=== PATIENT | male | born 1955 | race Caucasian/White ===

== ENCOUNTER → 2017-06-06 09:26 | Outpatient (CLI) | payer OTHER, MEDICARE, SELFPAY ==
--- NOTE | 2017-06-06 09:29 | CT_ITS ---
CT abdomen pelvis w con CLINICAL INDICATION: Abdominal pain, follow-up pancreatitis ITS.REASON: Abdominal pain, history of pancreatitis ORDERING PHYSICIAN: Jacky Lau MD PATIENT AGE: 61 years COMPARISON: 10/09/2016 TECHNIQUE: Axial images obtained following contrast administration. 30 seconds, 60 seconds, and 5 minute delayed images are obtained with sagittal and coronal reformats. All CT scans at the facility use one or more dose reduction, viz: automated exposure control; ma/kV adjustment per patient size (including targeted exams where dose is matched to indication; i.e. head); or iterative reconstruction technique. PROCEDURE: Oral Contrast: Redicat IV Contrast: 75 mL of Isovue-370. FINDINGS: No acute finding in the lung bases. Mild fatty liver infiltration. No focal liver lesion evident. Prior cholecystectomy without ductal dilatation the spleen, adrenal glands, and kidneys have an unremarkable appearance. Scattered punctate calcifications are present within the pancreas consistent with chronic pancreatitis. The previously noted acute pancreatitis has resolved. No pancreatic mass or pseudocyst.. No peripancreatic fluid collection. There is a small oval density in the right paracolic gutter measuring 1 x 1.2 cm with some ringlike enhancement. This may be due to small area of fat necrosis. No intestinal obstruction or free air is evident. Unremarkable appendix. There is some faint increased density of the central mesenteric fat on the delayed images which is nonspecific. Diverticulosis involving the descending and sigmoid colon. No evidence of diverticulitis. No pelvic mass or fluid collection or focal inflammatory change of the pelvis. No acute bony findings. IMPRESSION: 1. Chronic pancreatitis. Previously noted acute pancreatitis has resolved. 2. Diverticulosis without diverticulitis. 3. Probable small area of fat necrosis in the right paracolic gutter. This may be confirmed with follow-up
== END ==
PROVIDERS: Family Provider Nurse Practitioner; PCP Family Medicine; Visit Provider Surgery
DX: Z87.19 Personal history of other diseases of the digestive system (principal); R10.9 Unspecified abdominal pain
CPT/HCPCS: 74177; Q9967

== ENCOUNTER → 2017-06-14 10:45 | Outpatient (CLI) | payer OTHER, MEDICARE, SELFPAY ==
--- NOTE | 2017-06-14 10:47 | FL_ITS ---
FL upper GI small bowel HISTORY: ITS.REASON: abd pain, bloating ORDERING PHYSICIAN: Jacky Lau MD PATIENT AGE: 61 years FINDINGS: Credit Administrator exam shows a 1 cm stone along the lower pole of the left kidney. There are scattered hyperdensities in the abdomen consistent with contrast filled diverticula. Posttraumatic changes are present involving the left hip with bony hypertrophy. Surgical clips right upper quadrant. There is a small sliding hiatal hernia. No ulcer or mass evident. The stomach and duodenum have an unremarkable appearance. The small bowel has an unremarkable appearance. No mucosal abnormalities, obstructing lesions, or mass is evident. Spot views of the terminal ileum are unremarkable. IMPRESSION: 1. Small sliding hiatal hernia. 2. Otherwise negative upper GI with small bowel follow-through. Fluoroscopy time: 2 minutes 45 seconds
== END ==
PROVIDERS: Family Provider Nurse Practitioner; PCP Family Medicine; Visit Provider Surgery
DX: R10.9 Unspecified abdominal pain (principal); R14.0 Abdominal distension (gaseous); R19.8 Other specified symptoms and signs involving the digestive system and abdomen
CPT/HCPCS: 74245

== ENCOUNTER → 2017-06-19 09:43 | Outpatient (CLI) | payer OTHER, MEDICARE, SELFPAY ==
--- NOTE | 2017-06-19 09:46 | NM_ITS ---
NM gastric emptying study CLINICAL INDICATION: ITS.REASON: epigastric discomfort,abd pain ORDERING PHYSICIAN: Jacky Lau MD PATIENT AGE: 61 years DOSE: 0.58 mCi technetium sulfa colloid with radiolabeled meal FINDINGS: Time/activity curve is generated following ingestion of the radiolabeled meal. One half emptying time is calculated to be 61 minutes which is normal. One half of the gastric contents had emptied at 60 minutes. Submitted images show no evidence of reflux. IMPRESSION: Normal gastric emptying time
== END ==
PROVIDERS: Family Provider Nurse Practitioner; PCP Family Medicine; Visit Provider Surgery
DX: R10.13 Epigastric pain (principal); R10.9 Unspecified abdominal pain; K86.1 Other chronic pancreatitis; R14.0 Abdominal distension (gaseous); R19.8 Other specified symptoms and signs involving the digestive system and abdomen
CPT/HCPCS: 78264; A9541

== ENCOUNTER → 2017-07-01 08:57 | Outpatient (POV) | payer OTHER, MEDICARE, SELFPAY ==
[2017-07-01 10:32] LABS: Basophils # 0.1 K/mm3 (0-0.2); Basophils % 0.7 % (0.1-2.0); Eosinophils # 0.2 K/mm3 (0.0-0.4); Eosinophils % 3.7 % (0.1-12.0); Hematocrit 50.3 % (42.0-52.0); Hemoglobin 16.5 g/dL (14.1-18.0); Lymphocytes # 1.6 K/mm3 (0.7-4.5); Lymphocytes % 23.9 K/mm3 (10-50); Mean Corpuscular HGB Conc 32.8 g/dL (31.8-35.4); Mean Corpuscular Hemoglobin 29.9 pg (27.0-31.2); Mean Corpuscular Volume 91.4 fl (80-94); Mean Platelet Volume 10.4 fl (7.4-10.4); Monocytes # 0.4 K/mm3 (0.1-1.0); Monocytes % 5.4 % (1.7-9.3); Neutrophils # 4.4 K/mm3 (1.8-7.8); Neutrophils % 66.2 % (37.0-80.0); Platelet Count 153 K/mm3 (142-424); Red Cell Distribution Width 13.4 % (11.5-17.5); White Blood Count 6.6 K/mm3 (4.8-10.8)
[2017-07-01 11:46] LABS: Alanine Aminotransferase 28 U/L (12-78); Albumin Level 3.8 gm/dL (3.4-5.0); Albumin/Globulin Ratio 1.2 (1.1-1.8); Alkaline Phosphatase 51 U/L (46-116); Amylase 110 U/L (25-125); Anion Gap 12.4 mEq/L (5-15); Aspartate Amino Transferase 19 U/L (15-37); Bilirubin,Total 0.3 mg/dL (0.2-1.0); Blood Urea Nitrogen 13 mg/dL (7-18); Calcium 9.5 mg/dL (8.5-10.1); Carbon Dioxide 27 mmol/L (21.0-32.0); Chloride 105 mmol/L (98-107); Creatinine,Serum 0.97 mg/dL (0.70-1.30); Estimated Glomerular Filt Rate 79 ml/min (>60); GFR (African American) 96 ML/MIN (>60); Globulin 3.2 gm/dl (1.3-3.2); Glucose 155 mg/dL (74-106); Lipase 524 u/L (73-393); Potassium 4.4 mmoL/L (3.5-5.1); Sodium 140 mmol/L (136-145)
== END ==
PROVIDERS: Visit Provider Nurse Practitioner Acute Care
DX: K85.90 Acute pancreatitis without necrosis or infection, unspecified (principal)
CPT/HCPCS: 36415; 80053; 82150; 83690; 85025

== ENCOUNTER → 2017-11-11 08:55 | Outpatient (POV) | payer OTHER, MEDICARE, SELFPAY | PROVIDERS: Family Provider Nurse Practitioner; PCP Family Medicine; Visit Provider Nurse Practitioner Acute Care | DX: Z00.00 Encounter for general adult medical examination without abnormal findings (principal) ==

== ENCOUNTER → 2019-08-24 09:01 | Outpatient (CLI) | payer MEDICARE, SELFPAY ==
[2019-08-24 09:20] LABS: Basophils # 0.1 K/mm3 (0-0.2); Basophils % 0.7 % (0.1-2.0); Eosinophils # 0.2 K/mm3 (0.0-0.4); Eosinophils % 3.4 % (0.1-12.0); Hematocrit 49.7 % (42.0-52.0); Hemoglobin 16.4 g/dL (14.1-18.0); Lymphocytes % 28.7 % (10-50); Mean Corpuscular Hemoglobin 29.6 pg (27.0-31.2); Mean Corpuscular Volume 89.7 fl (80-94); Mean Platelet Volume 9.9 fl (7.4-10.4); Monocytes # 0.3 K/mm3 (0.1-1.0); Monocytes % 4.2 % (1.7-9.3); Neutrophils # 4.3 K/mm3 (1.8-7.8); Neutrophils % 62.9 % (37.0-80.0); Platelet Count 135 K/mm3 (142-424); Red Blood Count 5.54 M/mm3 (4.60-6.20); Red Cell Distribution Width 14.9 % (11.5-17.5); White Blood Count 6.9 K/mm3 (4.8-10.8)
[2019-08-24 10:03] LABS: Chloride 104 mmol/L (98-107); Potassium 4.8 mmoL/L (3.5-5.1); Sodium 142 mmol/L (136-145)
[2019-08-24 10:05] LABS: Amylase 61 U/L (30-110)
[2019-08-24 10:06] LABS: Alanine Aminotransferase 21 U/L (12-78); Albumin Level 4.2 g/dl (3.5-5.0); Albumin/Globulin Ratio 1.6 (1.1-1.8); Alkaline Phosphatase 44 U/L (38-126); Anion Gap 15.8 mEq/L (5-15); Aspartate Amino Transferase 24 U/L (17-59); Bilirubin,Total 0.5 mg/dl (0.2-1.3); Blood Urea Nitrogen 12 mg/dl (9-20); Calcium 9.8 mg/dl (8.4-10.2); Carbon Dioxide 27 mmol/L (22.0-30.0); Estimated Glomerular Filt Rate 86 ml/min (>60); GFR (African American) 104 ML/MIN (>60); Globulin 2.6 g/dL (1.3-3.2); Glucose 142 mg/dl (74-100); Iron 87 ug/dL (49-181); Lipase 253 U/L (23-300); Total Protein,Serum 6.8 g/dl (6.3-8.2)
[2019-08-24 10:14] LABS: Total Iron Binding Capacity 360 ug/dL (261-462)
[2019-08-24 10:39] LABS: Ferritin 25.3 ng/ml (17.9-464)
[2019-08-25 06:38] LABS: Vitamin B12 536 pg/mL (232-1245)
[2019-08-25 08:25] LABS: CA 19-9 26 U/mL (0-35)
== END ==
PROVIDERS: Visit Provider Internal Medicine Gastroenterology
DX: K86.1 Other chronic pancreatitis (principal); K22.70 Barrett's esophagus without dysplasia; K21.9 Gastro-esophageal reflux disease without esophagitis; R10.32 Left lower quadrant pain; Z86.010 Personal history of colon polyps
CPT/HCPCS: 36415; 80053; 82150; 82607; 82728; 83540; 83550; 83690; 85025; 86316

== ENCOUNTER 2019-09-24 11:00 | Emergency (ER) | payer MEDICARE, SELFPAY ==
--- NOTE | 2019-09-24 11:06 | ECG_ITS ---
APPROVED REPORT Exam: Resting ECG HR:80 bpm ECG Measurements Heart Rate 80 AXES TN 164 P 76 QRSd 88 QRS 47 QT 368 T 23 QTc 424 <Conclusion> Normal sinus rhythm Normal ECG Electronically signed by : Duran Crane, 09/25/2019 07:53:16
[2019-09-24 11:11] VITALS: BP 169/102; PULSE 80; RESP 17; TEMP 36.7; O2SAT 96; BMI 34.0
--- NOTE | 2019-09-24 11:12 | HMH.EDGENADL ---
ED Disposition Clinical Impression: Atypical chest pain Disposition: Home, Self-Care Condition on Discharge: Good Instructions: DI for Atypical Chest Pain Additional Instructions: Additional instructions for CHEST PAIN: See your physician as soon as possible for further evaluation. Return immediately if worsening chest pain, vomiting, shortness of breath, fever, coughing of blood. Referrals: Duran Jiménez MD [Primary Care Provider] - - Critical Care Critical Care Time: No Attestation: On , the high probability of a clinically significant, sudden or life threatening deterioration of the following system(s) required my full and direct attention, intervention and personal management. The time I documented below is in addition to time spent performing reported procedures but includes the following listed in this critical care notation. Medical Decision Making - Cameron Inquiry Pt receiving controlled substance: No Vital Signs: 09/24/19 11:11 09/24/19 11:32 09/24/19 12:20 Temperature 98.0 F Temperature Source Oral Pulse Rate [Right Radial] 80 83 77 Respiratory Rate 17 Blood Pressure [Right Arm] 169/102 H 140/76 154/82 H Blood Pressure Mean [Right Arm] 124 97 106 Blood Pressure Source [Right Arm] Automatic Cuff Automatic Cuff Blood Pressure Position [Right Arm] Sitting Sitting 02 Sat by Pulse Oximetry 96 96 94 L Oxygen Delivery Method Room Air Room Air Room Air 09/24/19 13:12 09/24/19 14:00 Temperature Temperature Source Pulse Rate [Right Radial] 71 67 Respiratory Rate Blood Pressure [Right Arm] 138/78 136/77 Blood Pressure Mean [Right Arm] 98 96 Blood Pressure Source [Right Arm] Automatic Cuff Automatic Cuff Blood Pressure Position [Right Arm] Sitting Sitting 02 Sat by Pulse Oximetry 94 L 98 Oxygen Delivery Method Room Air Room Air - Lab Data Lab Results 09/24/19 11:15: WBC 7.3, RBC 5.53, Hgb 16.5, Hct 50.1, MCV 90.6, MCH 29.9, MCHC 33.0, RDW 15.2, Plt Count 147, MPV 10.5 H, Neut % (Auto) 70.9, Lymph % (Auto) 21.5, Garvin % (Auto) 4.2, Eos % (Auto) 2.6, Baso % (Auto) 0.8, Neut # (Auto) 5.2, Lymph # (Auto) 1.6, Garvin # (Auto) 0.3, Eos # (Auto) 0.2, Baso # (Auto) 0.1 09/24/19 11:15: Sodium 140, Potassium 4.2, Chloride 104, Carbon Dioxide 24, Anion Gap 16.2 H, BUN 14, Creatinine 0.80, Estimated Creat Clear 118, Estimated GFR 98, Est GFR ( Amer) 119, Glucose 206 H, Calcium 10.1, Total Bilirubin 0.5, AST 30, ALT 28, Alkaline Phosphatase 42, Troponin I < 0.01, Total Protein 7.4, Albumin 4.4, Globulin 3.0, Albumin/Globulin Ratio 1.5 09/24/19 11:15: D-Dimer 203 09/24/19 13:52: Troponin I < 0.01 Result diagrams: 09/24/19 11:15 09/24/19 11:15 Orders (Tests/Meds): ED MEDICATIONS Discontinued Medications Generic Name Dose Route Start Last Admin Trade Name Freq PRN Reason Stop Dose Admin Aspirin 324 mg 09/24/19 11:18 09/24/19 11:28 Aspirin 81mg Chewable Tablet PO 09/24/19 11:19 324 mg ONCE ONE Administration Ketorolac Tromethamine 30 mg 09/24/19 12:56 09/24/19 13:48 Toradol 30mg/Ml Vial IV 09/24/19 12:57 30 mg ONCE ONE Administration ORDERS Category Date Time Status Troponin I Q3H Lab 09/24/19 17:30 Ordered - Radiology Data #1 Image(s): Chest Image Reviewed: Yes I have reviewed radiologist's interpretation PROCEDURE: XR CHEST 2V CLINICAL HISTORY: chest pain COMPARISON: CR CXR CHEST(2 VIEWS-NOT PORTABLE) from 01/12/2013 CR CXR CHEST(2 VIEWS-NOT PORTABLE) from 09/29/2016 FINDINGS: Unremarkable cardiovascular structures The lungs are clear without infiltrates, suspicious nodules, or pleural effusions. There is mild upper thoracic curvature convex left and mild lower thoracic curvature convex right. There is straightening of the thoracic kyphosis. Degenerative changes are present in the thoracic. There is an old left clavicular fracture IMPRESSION: No acute findings. Dictated Shiv Cartwright MD
--- NOTE | 2019-09-24 11:18 | XR_ITS ---
PROCEDURE: XR CHEST 2V CLINICAL HISTORY: chest pain COMPARISON: CR CXR CHEST(2 VIEWS-NOT PORTABLE) from 01/12/2013 CR CXR CHEST(2 VIEWS-NOT PORTABLE) from 09/29/2016 FINDINGS: Unremarkable cardiovascular structures The lungs are clear without infiltrates, suspicious nodules, or pleural effusions. There is mild upper thoracic curvature convex left and mild lower thoracic curvature convex right. There is straightening of the thoracic kyphosis. Degenerative changes are present in the thoracic. There is an old left clavicular fracture IMPRESSION: No acute findings. Dictated b Shiv Gipson MD 09/24/2019 11:46 Shiv Gipson MD in [place] 09/24/2019 11:46
[2019-09-24 11:28] LABS: Basophils # 0.1 K/mm3 (0-0.2); Basophils % 0.8 % (0.1-2.0); Eosinophils # 0.2 K/mm3 (0.0-0.4); Eosinophils % 2.6 % (0.1-12.0); Hematocrit 50.1 % (42.0-52.0); Hemoglobin 16.5 g/dL (14.1-18.0); Lymphocytes # 1.6 K/mm3 (0.7-4.5); Lymphocytes % 21.5 % (10-50); Mean Corpuscular Hemoglobin 29.9 pg (27.0-31.2); Mean Corpuscular Volume 90.6 fl (80-94); Mean Platelet Volume 10.5 fl (7.4-10.4); Monocytes # 0.3 K/mm3 (0.1-1.0); Monocytes % 4.2 % (1.7-9.3); Neutrophils # 5.2 K/mm3 (1.8-7.8); Neutrophils % 70.9 % (37.0-80.0); Platelet Count 147 K/mm3 (142-424); Red Blood Count 5.53 M/mm3 (4.60-6.20); Red Cell Distribution Width 15.2 % (11.5-17.5); White Blood Count 7.3 K/mm3 (4.8-10.8)
[2019-09-24 11:29] LABS: Chloride 104 mmol/L (98-107); Sodium 140 mmol/L (136-145)
[2019-09-24 11:30] LABS: Potassium 4.2 mmoL/L (3.5-5.1)
[2019-09-24 11:32] VITALS: BP 140/76; PULSE 83; O2SAT 96
[2019-09-24 11:32] LABS: Alanine Aminotransferase 28 U/L (12-78); Albumin Level 4.4 g/dl (3.5-5.0); Albumin/Globulin Ratio 1.5 (1.1-1.8); Alkaline Phosphatase 42 U/L (38-126); Anion Gap 16.2 mEq/L (5-15); Aspartate Amino Transferase 30 U/L (17-59); Bilirubin,Total 0.5 mg/dl (0.2-1.3); Blood Urea Nitrogen 14 mg/dl (9-20); Calcium 10.1 mg/dl (8.4-10.2); Carbon Dioxide 24 mmol/L (22.0-30.0); Creatinine Clearance Estimated 118 mL/min (50-200); Estimated Glomerular Filt Rate 98 ml/min (>60); GFR (African American) 119 ML/MIN (>60); Glucose 206 mg/dl (74-100); Total Protein,Serum 7.4 g/dl (6.3-8.2)
--- NOTE | 2019-09-24 11:42 | PC.NURSE ---
CARDIOLOGY NOTIFIED OF PT'S ADMIT TO ED.
[2019-09-24 11:46] LABS: Troponin I < 0.01 ng/ml (0.00-0.034)
--- NOTE | 2019-09-24 12:03 | CA_ITS ---
APPROVED REPORT EXAM: Comprehensive 2D, Doppler, and color-flow Echocardiogram Block Splitter Operator: Jayne Baires RVT Ht: 5 ft 10 in Wt: 237lbs BSA: 2.24 BP: 140/76 mmHg Indications: CP,EX SMOKER,ABN EKG,FAMILY HX HEART DZ 2D Dimensions LVOT 2.43 cm (M/F) 1.5-2.5 M-Mode Dimensions RVDd 2.80 cm (0.9-2.6) LVDd 4.53 cm (3.5-5.7) LVDs 3.22 cm (3.5-5.7) IVSd 1.21 cm (0.6-1.1) PWd 1.17 cm (0.6-1.1) EF (Teich) 55.70% FS 28.90% EDV (Teich) 93.90 mL ESV (Teich) 41.60 mL LV Diastology E/A Ratio 0.79 Mitral Valve MV A Velocity 58.00 (40-130 cm/s) Left Ventricle Left atrium is mildly enlarged, left ventricle is normal size, mild concentric left ventricular hypertrophy, visually estimated ejection fraction 55% with no regional wall motion abnormality, grade 1 diastolic dysfunction seen without tissue Doppler evidence of raise left atrial pressure. Right Ventricle Right atrium and right ventricle are mildly enlarged with normal contractility. Aortic Valve Valve is minimally thickened and fibrosed, there is no aortic stenosis or aortic insufficiency. Mitral Valve Mitral valve is grossly normal, there is mild mitral regurgitation. Tricuspid Valve Tricuspid valve is grossly normal, there is mild tricuspid regurgitation, tricuspid regurgitation jet velocity is inadequate for calculation of the right ventricular systolic pressure. Pulmonic Valve Pulmonic valve is poorly visualized. Great Vessels Aortic root is normal size. Pericardium No significant pericardial effusion noted. Conclusion 1. Mild biatrial enlargement, normal left ventricular size, mild concentric left ventricular hypertrophy, visually estimated ejection fraction 55% with no regional wall motion abnormality, grade 1 diastolic dysfunction seen without tissue Doppler evidence of raise left atrial pressure. 2. Mildly enlarged right ventricle with normal contractility. 3. Mild mitral and tricuspid regurgitation. 4. No significant pericardial effusion noted. Electronically signed by : Anil Pineda, 09/24/2019 15:47:13
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
[2019-09-24 12:20] VITALS: BP 154/82; PULSE 77; O2SAT 94
[2019-09-24 12:38] LABS: D-Dimer 203 ng/mL (0-400)
[2019-09-24 13:12] VITALS: BP 138/78; PULSE 71; O2SAT 94
--- NOTE | 2019-09-24 13:17 | PC.NURSE ---
Alvarez sim at bedside
--- NOTE | 2019-09-24 13:57 | PC.NURSE ---
2nd troponin drawn and to lab for resulting.
[2019-09-24 14:00] VITALS: BP 136/77; PULSE 67; O2SAT 98
[2019-09-24 14:24] LABS: Troponin I < 0.01 ng/ml (0.00-0.034)
[2019-09-24 15:14] VITALS: BP 135/70; PULSE 70; RESP 17; TEMP 36.8; O2SAT 99
== END 2019-09-24 15:15 | disposition home or self-care (01) ==
PROVIDERS: Physician Assistant; Emergency Provider Emergency Medicine; PCP Family Medicine
DX: R07.89 Other chest pain (principal); Z87.891 Personal history of nicotine dependence; Z88.6 Allergy status to analgesic agent
CPT/HCPCS: 71046; 80053; 84484; 85025; 85378; 93005; 93306; 96374; 99284

== ENCOUNTER → 2020-06-10 09:14 | Outpatient (CLI) | payer MEDICARE, SELFPAY ==
--- NOTE | 2020-06-10 | XR_ITS ---
PROCEDURE: XR SHOULDER RT MIN 2V CLINICAL INDICATION: PAIN OF RT SHOULDER REGION COMPARISON: CR SHOU3L [id number] VIEWS from 05/20/2012 CR SHOU3R [id number] VIEWS from 05/20/2012 FINDINGS: No fracture or dislocation. No lytic or blastic change. There is normal mineralization. Mild osteoarthritic changes involve the glenohumeral joint. The AC joint has an unremarkable appearance. No fracture or dislocation. No lytic or blastic change. No subacromial stenosis. Other findings:None. IMPRESSION: Mild osteoarthritis glenohumeral joint otherwise negative Dictated by: Shiv Gipson MD 06/10/2020 10:34 Shiv Gipson MD in [place] 06/10/2020 10:34
--- NOTE | 2020-06-10 | XR_ITS ---
PROCEDURE: XR SHOULDER LT MIN 2V CLINICAL INDICATION: ROTATOR CUFF SYNDROME OF LT SHOULDER COMPARISON: CR SHOU3L [id number] VIEWS from 05/20/2012 CR SHOU3R [id number] VIEWS from 05/20/2012 CR CXR CHEST(2 VIEWS-NOT PORTABLE) from 01/12/2013 FINDINGS: Osteoarthritic changes are present at the glenohumeral joint. There is an old midshaft clavicular fracture with exostosis along the superior aspect of the fracture site. The acromioclavicular joint has an unremarkable appearance. No significant subacromial stenosis. IMPRESSION: Mild osteoarthritic change of the glenohumeral joint. Old left clavicular fracture Dictated by: Shiv Gipson MD 06/10/2020 10:32 Shiv Gipson MD in [place] 06/10/2020 10:32
--- NOTE | 2020-06-10 | XR_ITS ---
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 There are mild osteoarthritic changes at the scapho trapezium joint, 1st metacarpal-carpal joint, 2nd, 3rd, and 4th DIP joints. Chondrocalcinosis is present at the triangular fibrocartilage. IMPRESSION: Osteoarthritic changes as described above. 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
--- NOTE | 2020-06-10 | CA_ITS ---
APPROVED REPORT Exam: Exercise Treadmill Technologist: Lizeth Gong, Ht: 5 ft 10 in Wt: 240 lbs BSA: 2.26 m2 HR: 69 bpm BP: 144/69 mmHg Rhythm: sinus rhythm Medical History Medications: Vitamin C,,,,, ALIGn,,,,, Creon,,,,, OmPEprazole,,,,, Apple cider vinegar plus Tb,,,,, Cardiac Risk Factors: FHX of CAD Stress Test Details Test: Rhett HR Resting HR: 80 bpm Max Heart Rate (APMHR): 158.966147 bpm Max HR Achieved: 152 bpm Target HR (85% APMHR): 134.117301 bpm % of APMHR: 96.20 Recovery HR: 114 bpm BP Resting BP: 144/84 mmHg Max BP: 205/100 mmHg Recovery BP: 190.0/90.0 mmHg ECG Resting ECG: Sinus rhythm Clinical Exercise duration: 08:43 min Highest Stage Achieved: Exercise capacity: 10.1 METs Stress ECG Conclusion Rhett protocol completed. Stopped due to shortness of breath at peak infusion. Total excerise time 8:43. No complaint of chest pain. Occasional PVC and occasional PAC noted. Less than 1.5mm ST segment changes. GXT only. Hypertensive BP response. Average physical capacity. Test Summary REST . . . . . . . Standing REST . . . . . . . Sitting REST . . . . . . . Sitting REST 05:01 0.0 0.0 80 . 144/ 84 . . Stage 1 01:00 10.0 1.7 101 . . . . Stage 1 02:00 10.0 1.7 106 . . . . Stage 1 03:00 10.0 1.7 105 . 170/ 95 . . Stage 2 01:00 12.0 2.5 117 . . . . Stage 2 02:00 12.0 2.5 128 . . . . Stage 2 03:00 12.0 2.5 130 . 190/100 . . Stage 3 01:00 14.0 3.4 142 . . . . Stage 3 02:00 14.0 3.4 149 . . . . Stage 3 02:43 14.0 3.4 152 . 205/100 . Stop exercise at 08:43 RECOVERY 01:00 0.0 0.0 131 . . . . RECOVERY 02:00 0.0 0.0 115 . 190/ 90 . . RECOVERY 03:00 0.0 0.0 105 . 190/ 90 . . RECOVERY 04:00 0.0 0.0 106 . 150/ 70 . . RECOVERY 05:00 0.0 0.0 106 . 138/ 75 . . RECOVERY 05:14 0.0 0.0 99 . 138/ 75 . . Electronically signed by : Duran Crane, 06/10/2020 10:35:26
== END ==
PROVIDERS: PCP Family Medicine; Visit Provider Family Medicine
DX: R07.9 Chest pain, unspecified (principal); M25.511 Pain in right shoulder; M75.102 Unspecified rotator cuff tear or rupture of left shoulder, not specified as traumatic; M19.042 Primary osteoarthritis, left hand
CPT/HCPCS: 73030; 73130; 93017

== ENCOUNTER 2020-08-10 10:38 | Outpatient (RCR) | payer MEDICARE, SELFPAY | END 2020-08-10 11:30 | disposition home or self-care (01) | LOC: OT 10:38 | PROVIDERS: Visit Provider Orthopaedic Surgery | DX: G56.02 Carpal tunnel syndrome, left upper limb (principal); M19.032 Primary osteoarthritis, left wrist | CPT/HCPCS: 97763 ==

== ENCOUNTER → 2021-01-10 11:24 | Outpatient (CLI) | payer MEDICARE, SELFPAY ==
--- NOTE | 2021-01-10 11:28 | XR_ITS ---
PROCEDURE: XR KNEE RT 3V CLINICAL INDICATION: ACUTE PAIN OF RT KNEE COMPARISON: No exams were available for comparison FINDINGS: There is a bipartite patella. There is a medium size suprapatellar effusion. Along the lateral aspect of the patella there is a longitudinal lucency. It is uncertain if this lucency is the lateral margin of the patella or a linear lucency through the lateral aspect of the patella. Nondisplaced fracture is not excluded and CT may provide further evaluation. Chondrocalcinosis involves the medial and lateral meniscus. There are mild osteoarthritic changes involving all 3 compartments. IMPRESSION: Possible fracture of the patella laterally with knee joint effusion. CT may provide more definitive evaluation. Degenerative changes Dictated by: Shiv Gipson MD 01/10/2021 11:44 Shiv Gipson MD in [place] 01/10/2021 11:44
== END ==
LOC: RAD 11:26
PROVIDERS: PCP Family Medicine; Visit Provider Family Medicine
DX: M25.561 Pain in right knee (principal)
CPT/HCPCS: 73562

== ENCOUNTER → 2021-01-20 07:54 | Outpatient (CLI) | payer MEDICARE, SELFPAY ==
--- NOTE | 2021-01-20 07:56 | CT_ITS ---
PROCEDURE: CT KNEE RT WO CON CLINICAL HISTORY: RT KNEE PAIN,FX OF RT PATELLA COMPARISON: CR XR KNEE RT 3V from 01/10/2021 TECHNIQUE: Axial images obtained with sagittal and coronal reformats. All CT scans at the facility use one or more dose reduction, viz: automated exposure control, ma/kV adjustment per patient size (including targeted exams where dose is matched to indication, i.e. head), or iterative reconstruction technique. FINDINGS: No acute patellar fracture is evident. There are several calcific fragments along the superior and lateral aspect of the patella which are well-circumscribed and could represent either old fracture or ununited ossification centers/tripartite patella. The most superior of these fragments is more sclerotic than the remaining fragments. There is some calcific debris along the superior lateral aspect of the patella with some mild soft tissue thickening. Small knee joint effusion is noted. There are mild tricompartmental osteoarthritic changes with chondrocalcinosis of the medial and lateral meniscus. IMPRESSION: No acute fracture. Numerous ununited ossified fragments along the superior lateral aspect of the patella which may be developmental and or represent chronic posttraumatic change. Calcific debris noted along the superior lateral aspect of the patella with some soft tissue thickening suggesting old injury. Small knee joint effusion. Mild osteoarthritic changes with chondrocalcinosis. Dictated by: Shiv Gipson MD 01/20/2021 11:02 Shiv Gipson MD in [place] 01/20/2021 11:02
== END ==
LOC: RAD 07:54
PROVIDERS: PCP Family Medicine; Visit Provider Family Medicine
DX: M25.561 Pain in right knee (principal); S82.091A Other fracture of right patella, initial encounter for closed fracture
CPT/HCPCS: 73700

== ENCOUNTER 2021-02-18 22:45 | Emergency (ER) | payer MEDICARE, SELFPAY ==
[2021-02-18 23:01] VITALS: BP 123/79; PULSE 82; O2SAT 96
[2021-02-18 23:08] VITALS: BMI 34.4
--- NOTE | 2021-02-18 23:09 | CT_ITS ---
PROCEDURE INFORMATION: Exam: CT Abdomen And Pelvis Without Contrast Exam date and time: 02/18/2021 11:09 PM Age: 65 years old Clinical indication: Abdominal pain; Patient HX: Right back and flank pain; Additional info: Abdominal pain and back pain TECHNIQUE: Imaging protocol: Computed tomography of the abdomen and pelvis without contrast. Radiation optimization: All CT scans at this facility use at least one of these dose optimization techniques: automated exposure control; mA and/or kV adjustment per patient size (includes targeted exams where dose is matched to clinical indication); or iterative reconstruction. COMPARISON: ABDPE CT abdomen pelvis w con 06/06/2017 9:41 AM FINDINGS: Liver: Mildly fatty liver. Gallbladder and bile ducts: Cholecystectomy. Pancreas: Pancreatic calcifications without acute inflammatory change. Spleen: Normal. No splenomegaly. Adrenal glands: Normal. No mass. Kidneys and ureters: Additional nonobstructive left renal stones. Stomach and bowel: Unremarkable. No obstruction. No mucosal thickening. Appendix: Normal appendix. Intraperitoneal space: Unremarkable. No free air. No significant fluid collection. Vasculature: Limited atherosclerosis without aneurysm. Lymph nodes: Unremarkable. No enlarged lymph nodes. Urinary bladder: 3 x 3 mm stone right side urinary bladder in or immediately adjacent to the UVJ with mild hydronephrosis and ureterectasis. Reproductive: Unremarkable as visualized. Bones/joints: No acute fracture. Left femoral aubrie appears unremarkable. Soft tissues: Unremarkable. Other findings: Diverticulosis. No other acute disease seen on nonenhanced study. As Above. IMPRESSION: 1. 3 x 3 mm stone right side urinary bladder in or immediately adjacent to the UVJ with mild hydronephrosis and ureterectasis. 2. No other acute disease seen on nonenhanced study. As Above.
[2021-02-18 23:16] VITALS: BP 126/83; PULSE 79; RESP 20; TEMP 37; O2SAT 95; BMI 34.4
[2021-02-18 23:18] LABS: Appearance,Urine CLOUDY (Clear); Bilirubin,Urine Negative (Negative); Blood, Urine 3+ (Negative); Color,Urine YELLOW (Yellow); Glucose,Urine (UA) Negative (Negative); Ketones,Urine TRACE (Negative); Leukocyte Esterase,Urine Negative (Negative); Microscopic, Urine URINE MICROSCOPIC (MICROSCOPIC); Nitrate,Urine Negative (Negative); PH,Urine 6.5 (5.0-8.5); Protein,Urine Negative (Negative); Specific Gravity, Urine 1.025 (1.005-1.030); Urobilinogen,Urine 0.2 EU/dl (0.2)
[2021-02-18 23:22] LABS: Basophils # 0.2 K/mm3 (0-0.2); Basophils % 1.8 % (0.1-2.0); Eosinophils # 0.1 K/mm3 (0.0-0.4); Eosinophils % 1.2 % (0.1-12.0); Hematocrit 50.1 % (42.0-52.0); Lymphocytes # 0.9 K/mm3 (0.7-4.5); Lymphocytes % 7.4 % (10-50); Mean Corpuscular HGB Conc 31.9 g/dL (31.8-35.4); Mean Corpuscular Volume 94.2 fl (80-94); Mean Platelet Volume 10.5 fl (7.4-10.4); Monocytes # 0.3 K/mm3 (0.1-1.0); Monocytes % 2.8 % (1.7-9.3); Neutrophils # 10.3 K/mm3 (1.8-7.8); Neutrophils % 86.8 % (37.0-80.0); Platelet Count 207 K/mm3 (142-424); Red Blood Count 5.32 M/mm3 (4.60-6.20); Red Cell Distribution Width 14.3 % (11.5-17.5); White Blood Count 11.9 K/mm3 (4.8-10.8)
[2021-02-18 23:25] LABS: Alanine Aminotransferase 24 U/L (12-78); Albumin Level 4.5 g/dl (3.5-5.0); Albumin/Globulin Ratio 1.5 (1.1-1.8); Alkaline Phosphatase 51 U/L (38-126); Amylase 88 U/L (30-110); Aspartate Amino Transferase 28 U/L (17-59); Bilirubin,Total 0.6 mg/dl (0.2-1.3); Blood Urea Nitrogen 14 mg/dl (9-20); Calcium 9.8 mg/dl (8.4-10.2); Carbon Dioxide 28 mmol/L (22.0-30.0); Chloride 101 mmol/L (98-107); Creatinine Clearance Estimated 116 mL/min (50-200); Estimated Glomerular Filt Rate 98 ml/min (>60); GFR (African American) 118 ML/MIN (>60); Glucose 195 mg/dl (74-100); Lipase 205 U/L (23-300); Sodium 137 mmol/L (136-145); Total Protein,Serum 7.5 g/dl (6.3-8.2)
[2021-02-18 23:27] LABS: Bacteria,Urine 1+ /lpf; Mucus,Urine 1+ /lpf; RBC,Urine TNTC #/hpf (0-3); Squamous Epithelial Cell,Urine Occasional #/hpf (0-5)
[2021-02-18 23:28] LABS: MANUAL DIFFERENTIAL MANUAL DIFFERENTIAL (MANUAL DIFF)
[2021-02-18 23:37] LABS: Lymphocytes % 7 % (10-50); Monocytes % 3 % (2-9); Neutrophils % 78 % (42-76); Total Cells Counted 100
[2021-02-18 23:38] LABS: Hypochromasia 1+; Platelet Estimate Normal
[2021-02-18 23:39] VITALS: BP 105/62; PULSE 78; O2SAT 94
[2021-02-18 23:51] LABS: Erythrocyte Sedimentation Rate 2 mm/hr (0-20)
[2021-02-19 00:01] VITALS: BP 116/68; PULSE 69; O2SAT 94
[2021-02-19 00:30] VITALS: BP 108/67; PULSE 71; O2SAT 93
--- NOTE | 2021-02-19 00:36 | PC.NURSE ---
Patient is resting comfortably. States that pain has improved since IV toradol and fluids. Nausea is improved with Zofran. Remains hemodynamically stable.
--- NOTE | 2021-02-19 00:48 | HMH.EDGENADL ---
ED Disposition Clinical Impression: Renal colic on right side Disposition: Home, Self-Care Condition on Discharge: Good Instructions: DI for Kidney Stones Additional Instructions: use meds and see urology for follow up Prescriptions: Tamsulosin HCl [Flomax 0.4mg capsule] 0.4 mg PO HS #10 cap Transmission Status: [id number] Ketorolac Tromethamine [Toradol 10mg tablet] 10 mg PO Q6HP PRN #8 tab MDD 40mg/day PRN Reason: Moderate To Severe Pain Transmission Status: Pending to [id number] Referrals: Duran Jiménez MD [Primary Care Provider] - Justin Rangel MD [Staff Physician] - - Critical Care Critical Care Time: No Attestation: On 02/18/21, the high probability of a clinically significant, sudden or life threatening deterioration of the following system(s) required my full and direct attention, intervention and personal management. The time I documented below is in addition to time spent performing reported procedures but includes the following listed in this critical care notation. Medical Decision Making - Medical Records Medical records reviewed: Yes: I reviewed the patient's medical records. - Cameron Inquiry Pt receiving controlled substance: No Vital Signs: 02/18/21 23:01 02/18/21 23:16 02/18/21 23:39 Temperature 98.6 F Temperature Source Oral Pulse Rate 82 78 Pulse Rate [Apical] 79 Respiratory Rate 20 Blood Pressure 123/79 105/62 L Blood Pressure [Right Arm] 126/83 Blood Pressure Mean [Right Arm] 97 Blood Pressure Source [Right Arm] Automatic Cuff Blood Pressure Position [Right Arm] Sitting 02 Sat by Pulse Oximetry 96 95 94 L Oxygen Delivery Method Room Air Room Air Room Air 02/19/21 00:01 02/19/21 00:30 Temperature Temperature Source Pulse Rate 69 71 Pulse Rate [Apical] Respiratory Rate Blood Pressure 116/68 108/67 L Blood Pressure [Right Arm] Blood Pressure Mean [Right Arm] Blood Pressure Source [Right Arm] Blood Pressure Position [Right Arm] 02 Sat by Pulse Oximetry 94 L 93 L Oxygen Delivery Method Room Air Room Air - Lab Data Lab results reviewed: Yes: I reviewed the patient's lab results. Lab Results 02/18/21 22:53: Urine Color Yellow, Urine Appearance Cloudy, Urine pH 6.5, Ur Specific [place] 1.025, Urine Protein Negative, Urine Glucose (UA) Negative, Urine Ketones Trace, Urine Blood 3+, Urine Nitrate Negative, Urine Bilirubin Negative, Urine Urobilinogen 0.2, Ur Leukocyte Esterase Negative, Urine RBC Tntc, Urine WBC 3-5, Ur Squamous Epith Cells Occasional, Urine Bacteria 1+, Urine Mucus 1+ 02/18/21 23:06: WBC 11.9 H, RBC 5.32, Hgb 16.0, Hct 50.1, MCV 94.2 H, MCH 30.0, MCHC 31.9, RDW 14.3, Plt Count 207, MPV 10.5 H, Neut % (Auto) 86.8 H, Lymph % (Auto) 7.4 L, [place] % (Auto) 2.8, Eos % (Auto) 1.2, Baso % (Auto) 1.8, Neut # (Auto) 10.3 H, Lymph # (Auto) 0.9, [place] # (Auto) 0.3, Eos # (Auto) 0.1, Baso # (Auto) 0.2, Total Counted 100, Neutrophils % (Manual) 78 H, Band Neutrophils % 12.0 H, Lymphocytes % (Manual) 7 L, Monocytes % (Manual) 3, Platelet Estimate Normal, Hypochromasia 1+, ESR 2 02/18/21 23:06: Sodium 137, Potassium 4.0, Chloride 101, Carbon Dioxide 28, Anion Gap 12.0, BUN 14, Creatinine 0.80, Estimated Creat Clear 116, Estimated GFR 98, Est GFR ( Amer) 118, Glucose 195 H, Calcium 9.8, Total Bilirubin 0.6, AST 28, ALT 24, Alkaline Phosphatase 51, C-Reactive Protein 3.0, Total Protein 7.5, Albumin 4.5, Globulin 3.0, Albumin/Globulin Ratio 1.5, Amylase 88, Lipase 205 Result diagrams: 02/18/21 23:06 02/18/21 23:06 Orders (Tests/Meds): ED MEDICATIONS Generic Name Dose Route Start Last Admin Trade Name Freq PRN Reason Stop Dose Admin Sodium Chloride 1,000 mls @ 999 mls/hr 02/18/21 23:15 02/18/21 23:12 Sod Chlor 0.9% 1000ml Bag IV 02/19/21 00:15 999 mls/hr .Q1H1M LUCA Administration Discontinued Medications Generic Name Dose Route Start Last Admin Trade Name Freq PRN
[2021-02-19 01:08] VITALS: BP 108/67; PULSE 71; RESP 20; TEMP 36.8; O2SAT 99
== END 2021-02-19 01:22 | disposition home or self-care (01) ==
PROVIDERS: Emergency Provider Emergency Medicine; PCP Family Medicine
DX: N23 Unspecified renal colic (principal); R11.2 Nausea with vomiting, unspecified; K21.9 Gastro-esophageal reflux disease without esophagitis
CPT/HCPCS: 74176; 80053; 81001; 82150; 83690; 85007; 85025; 85651; 86140; 96375; 99283; J2405

== ENCOUNTER → 2021-03-02 13:46 | Outpatient (CLI) | payer MEDICARE, SELFPAY ==
--- NOTE | 2021-03-02 13:50 | XR_ITS ---
FINAL REPORT CLINICAL HISTORY: kidney stone FINDINGS: A single view of the abdomen was obtained. There is a nonobstructive bowel gas pattern. There are no abnormally dilated loops of small bowel. There is a moderate amount of retained stool. There is an 18 mm stone in the lower pole of the left kidney. There are numerous pelvic calcifications which most likely represent phleboliths. A ureteral stone is not excluded. There are postoperative changes in the right abdomen. There are postoperative changes in the left femur. IMPRESSION: 18 mm renal stone in the lower pole of the left kidney. Numerous pelvic calcifications, most likely phleboliths but a ureteral stone is not excluded. Reviewed, Interpreted and Dictated by Nate Bran III, MD Transcribed by Bronwyn Patricia Authenticated by Nate Bran III, MD on 03/02/2021 03:11:13 PM [facility]
== END ==
LOC: RAD 13:48
PROVIDERS: PCP Family Medicine; Visit Provider Pathology Anatomic Pathology & Clinical Pathology
DX: N20.0 Calculus of kidney (principal)
CPT/HCPCS: 74018

== ENCOUNTER → 2021-03-22 09:06 | Outpatient (CLI) | payer MEDICARE, SELFPAY ==
--- NOTE | 2021-03-22 09:11 | XR_ITS ---
FINAL REPORT CLINICAL HISTORY: Lt Shoulder pain COMPARISON: June 10, 2020 FINDINGS: LEFT SHOULDER Three views demonstrate no acute fracture or dislocation. There is a chronic fracture of the mid left clavicle with deformity. There are mild degenerative changes of the acromioclavicular and the glenohumeral joints. No soft tissue abnormality is seen. IMPRESSION: Mild degenerative change. Chronic mid clavicle fracture with deformity. Reviewed, Interpreted and Dictated by Nate Bran III, MD Transcribed by Jonah Elkins Authenticated by Nate Bran III, MD on 03/22/2021 10:33:53 AM [facility]
== END ==
LOC: RAD 09:08
PROVIDERS: PCP Family Medicine; Visit Provider Orthopaedic Surgery
DX: M25.512 Pain in left shoulder (principal)
CPT/HCPCS: 73030

== ENCOUNTER → 2021-03-29 08:54 | Outpatient (CLI) | payer MEDICARE, SELFPAY ==
--- NOTE | 2021-03-29 09:00 | MR_ITS ---
FINAL REPORT CLINICAL HISTORY: RIGHT KNEE PAIN AND SWELLING, INJURY 2-3 MONTHS AGO, PRIOR CT 01-20-21 FINDINGS: Multiplanar MR imaging of the right knee was performed without contrast. There is a tear involving the posterior horn/posterior root of the medial meniscus. There is a tear of the anterior horn of the lateral meniscus. There is a sprain or partial tear of both the anterior and posterior cruciate ligaments. The medial collateral ligament and lateral ligamentous complex are intact. The quadriceps tendon appears intact. There is diffuse thickening of the patellar tendon, may represent patellar tendinitis. There is fragmentation of the patella, may represent sequela of prior injury. This does not appear to be the typical appearance of a bipartite patella. There is 20 mm calcification in this region. It is uncertain if this represents chronic fracture fragment or less likely loose body. Moderate degenerative changes are present. There is severe medial compartment chondromalacia. There are small osteochondral lesions of the medial femoral condyle and medial tibial plateau. Moderate joint effusion is seen. The musculature is intact. IMPRESSION: Medial and lateral meniscal tears as above. Sprain or partial tear of both the anterior and posterior cruciate ligaments. Patellar tendinitis. Abnormal appearance of the patella as detailed above. Chronic fracture fragment versus loose body. Degenerative change and chondromalacia. Osteochondral lesions of the medial femoral condyle and medial tibial plateau. Reviewed, Interpreted and Dictated by Nate Bran III, MD Transcribed by Yasmeen Tesfaye Authenticated by Nate Bran III, MD on 03/29/2021 12:15:05 PM [facility]
--- NOTE | 2021-03-29 09:00 | MR_ITS ---
FINAL REPORT CLINICAL HISTORY: shoulder pain FINDINGS: Multiplanar MR imaging of the left shoulder was performed without contrast. There is a full-thickness tear at the footprint of the supraspinatus tendon measuring approximately 8 mm in AP dimension. There is also a partial-thickness articular surface tear of the subscapularis tendon involving less than 50%. There is moderate a.c. joint arthrosis. Bone marrow edema is seen in the distal clavicle and acromion. There is a small amount of fluid in the subacromial/subdeltoid bursa. The glenoid labrum is intact. There is medial subluxation of the proximal long head of the biceps tendon with a partial tear. Mild glenohumeral degenerative change is identified. There are multiple subchondral cysts in the superior humeral head. Small glenohumeral joint effusion is seen. There is no evidence of fracture or dislocation. The musculature is intact. There is no evidence of soft tissue mass. IMPRESSION: Full-thickness tear of the supraspinatus tendon. Partial-thickness articular surface tear of the subscapularis tendon. Medial subluxation of the long head of the biceps tendon with a partial tear. Degenerative changes as detailed above. Reviewed, Interpreted and Dictated by Nate Bran III, MD Transcribed by Yasmeen Tesfaye Authenticated by Nate Bran III, MD on 03/29/2021 12:15:06 PM [facility]
== END ==
LOC: RAD 08:56
PROVIDERS: PCP Family Medicine; Visit Provider Orthopaedic Surgery
DX: M75.102 Unspecified rotator cuff tear or rupture of left shoulder, not specified as traumatic (principal); M23.91 Unspecified internal derangement of right knee
CPT/HCPCS: 73221; 73721

== ENCOUNTER → 2021-05-20 10:29 | Outpatient (CLI) | payer MEDICARE, SELFPAY ==
[2021-05-20 11:02] LABS: Basophils # 0.1 K/mm3 (0-0.2); Basophils % 0.5 % (0.1-2.0); Eosinophils # 0.1 K/mm3 (0.0-0.4); Eosinophils % 1.2 % (0.1-12.0); Hematocrit 51.1 % (42.0-52.0); Hemoglobin 16.7 g/dL (14.1-18.0); Lymphocytes % 19.6 % (10-50); Mean Corpuscular HGB Conc 32.6 g/dL (31.8-35.4); Mean Corpuscular Hemoglobin 30.1 pg (27.0-31.2); Mean Corpuscular Volume 92.4 fl (80-94); Mean Platelet Volume 10.4 fl (7.4-10.4); Monocytes # 0.5 K/mm3 (0.1-1.0); Monocytes % 5.3 % (1.7-9.3); Neutrophils # 7.4 K/mm3 (1.8-7.8); Neutrophils % 73.4 % (37.0-80.0); Platelet Count 179 K/mm3 (142-424); Red Blood Count 5.54 M/mm3 (4.60-6.20); Red Cell Distribution Width 14.4 % (11.5-17.5)
[2021-05-20 11:37] LABS: Alanine Aminotransferase 25 U/L (12-78); Albumin Level 4.3 g/dl (3.5-5.0); Albumin/Globulin Ratio 1.7 (1.1-1.8); Alkaline Phosphatase 44 U/L (38-126); Anion Gap 10.6 mEq/L (5-15); Aspartate Amino Transferase 23 U/L (17-59); Bilirubin,Total 0.5 mg/dl (0.2-1.3); Blood Urea Nitrogen 17 mg/dl (9-20); Calcium 9.6 mg/dl (8.4-10.2); Carbon Dioxide 30 mmol/L (22.0-30.0); Chloride 103 mmol/L (98-107); Estimated Glomerular Filt Rate 98 ml/min (>60); GFR (African American) 118 ML/MIN (>60); Globulin 2.6 g/dL (1.3-3.2); Glucose 128 mg/dl (74-100); Potassium 4.6 mmoL/L (3.5-5.1); Sodium 139 mmol/L (136-145); Total Protein,Serum 6.9 g/dl (6.3-8.2)
== END ==
PROVIDERS: Visit Provider Orthopaedic Surgery
DX: Z01.818 Encounter for other preprocedural examination (principal); Z11.52 Encounter for screening for COVID-19; M25.561 Pain in right knee
CPT/HCPCS: 36415; 80053; 83036; 85025; C9803; U0003; U0005

== ENCOUNTER → 2021-07-24 09:06 | Outpatient (CLI) | payer MEDICARE, SELFPAY ==
[2021-07-24 09:17] LABS: Coronavirus 19, PCR Not Detected (NotDetected); Influenza A, PCR Not Detected (NotDetected); Influenza B, PCR Not Detected (NotDetected)
[2021-07-24 09:34] LABS: Basophils # 0.2 K/mm3 (0-0.2); Basophils % 2.9 % (0.1-2.0); Eosinophils # 0.2 K/mm3 (0.0-0.4); Hematocrit 48.7 % (42.0-52.0); Hemoglobin 16.2 g/dL (14.1-18.0); Lymphocytes # 1.2 K/mm3 (0.7-4.5); Mean Corpuscular HGB Conc 33.4 g/dL (31.8-35.4); Mean Corpuscular Hemoglobin 31.4 pg (27.0-31.2); Mean Corpuscular Volume 94.3 fl (80-94); Mean Platelet Volume 11.1 fl (7.4-10.4); Monocytes # 0.3 K/mm3 (0.1-1.0); Monocytes % 4.4 % (1.7-9.3); Neutrophils # 5.7 K/mm3 (1.8-7.8); Neutrophils % 74.6 % (37.0-80.0); Platelet Count 170 K/mm3 (142-424); Red Blood Count 5.16 M/mm3 (4.60-6.20); Red Cell Distribution Width 14.6 % (11.5-17.5); White Blood Count 7.6 K/mm3 (4.8-10.8)
[2021-07-24 09:52] LABS: Chloride 104 mmol/L (98-107); Potassium 3.9 mmoL/L (3.5-5.1); Sodium 137 mmol/L (136-145)
[2021-07-24 09:55] LABS: Anion Gap 10.9 mEq/L (5-15); Blood Urea Nitrogen 13 mg/dl (9-20); Carbon Dioxide 26 mmol/L (22.0-30.0); Estimated Glomerular Filt Rate 98 ml/min (>60); GFR (African American) 118 ML/MIN (>60)
[2021-07-24 09:56] LABS: Calcium 9.4 mg/dl (8.4-10.2); Glucose 181 mg/dl (74-100)
[2021-07-24 10:24] LABS: Hemoglobin A1C 6.4 % (4.0-6.0)
== END ==
PROVIDERS: PCP Nurse Practitioner Family; Visit Provider Orthopaedic Surgery
DX: Z01.818 Encounter for other preprocedural examination (principal); Z20.822 Contact with and (suspected) exposure to COVID-19; S83.231D Complex tear of medial meniscus, current injury, right knee, subsequent encounter; R73.9 Hyperglycemia, unspecified
CPT/HCPCS: 36415; 80048; 83036; 85025; C9803; U0003; U0005

== ENCOUNTER 2021-07-25 08:30 | Day surgery (SDC) | payer MEDICARE, SELFPAY ==
[2021-05-18 14:15] VITALS: BMI 33.7
[2021-07-21 13:45] VITALS: BMI 33.7
[2021-07-25] VITALS (10 sets, daily range): BP systolic 129–171; BP diastolic 80–96; PULSE 63–81; RESP 12–18; TEMP 36.6–36.9; O2SAT 93–97
--- NOTE | 2021-07-25 11:12 | HMH.OPNOTE ---
Date of procedure: 07/25/21 Pre-op Diagnosis:: Right knee medial meniscus tear Post-op Diagnosis:: Right knee medial meniscus tear Procedure performed:: Right knee arthroscopy with partial medial meniscectomy Surgeon:: Luis M Boo MD BILINGUAL STUDENT TUTOR:: Matthias Reece Anesthesia: GETA, LMA Estimated blood loss (mL): 5 Clinical Note:: Duran is a very pleasant 65-year-old male with right knee pain secondary to mild osteoarthritis and a symptomatic medial meniscus tear as seen on MRI. He has failed conservative treatment measures including cortisone injection and physical therapy. We discussed all the risks, benefits and alternatives to right knee arthroscopy for partial medial meniscectomy. He agreed to proceed. Operative findings:: Right knee degenerative posterior horn medial meniscus tear Operative note:: The patient was seen in the preop holding area. Right knee was marked to confirm the correct operative site. He was seen by anesthesia. He received Ancef 2 g IV prophylactic antibiotics within 1 hour of incision time. He was brought back to the operating room. General anesthesia was induced without difficulty. The right lower extremity was prepped and draped in the usual sterile fashion. Timeout was performed to confirm right knee arthroscopy on patient Saurabh Guzman. An anterolateral viewing portal was made with an 11 blade scalpel. Arthroscope was introduced into the knee joint. Anteromedial portal was localized with a spinal needle and this incision was made with an 11 blade and dilated with a trocar. Diagnostic arthroscopy commenced. He was seen to have a posterior horn medial meniscus tear. Mild chondromalacia of the medial compartment with no full-thickness cartilage loss. This was debrided with a shaver. Posterior horn medial meniscus tear was complex with a radial component. Radial component was excised with an upbiter. We then used a 4.0 mm resector shaver to trim the posterior horn of the medial meniscus back to a smooth stable border. We removed approximately the inner third to half of the posterior horn of the medial meniscus. The rest of the diagnostic arthroscopy revealed intact cruciate ligaments. He was placed in the [id number] position. Lateral compartment had minimal chondromalacia and intact lateral meniscus. Patellofemoral compartment had some mild to moderate chondromalacia with no full-thickness cartilage loss. This was debrided with a shaver as well. At this time arthroscopy instruments were removed from the joint. Arthroscopy fluid suctioned and drained from the joint. Portals were closed with 4-0 Monocryl subcu stitches. We injected 20 cc of half percent Naropin from the superolateral approach for local anesthetic. A sterile dressing was applied with 4 x 4's, ABD, soft roll and a 6 inch Aric bandage. Anesthesia was reversed without difficulty. He was transferred to the recovery room in stable condition. All sponge and needle counts correct x2. Postoperative plan: He will be discharged home from recovery Plan aspirin for DVT prophylaxis and oxycodone as needed for pain. Okay to weight-bear as tolerated with crutch assist as needed. We will see him back in the office in 2 weeks for his first postoperative check. Condition: stable Disposition: PACU Specimens:: None Complications:: None
--- NOTE | 2021-07-25 11:18 | P.PN_ITS ---
[facility] Anesthesia Checklist - Structural Data Admitted From: Home Planned Operative Procedure/s: r knee arthroscopy Consent for Planned Operative Procedure(s) Verified: Yes - Additional verifications Anesthesia Reactions: No Hx Blood Transfusions: No Blood Transfusion Reaction: No - Airway Assessment C-Spine Mobility Assessed: Yes TMJ Mobility Assessed: Yes Dentition: Poor Dentition - Neurological Assessment Level of Consciousness: Awake, Alert, Appropriate - Anesthesia Plan Anesthesia Risk discussed: Yes Anesthesia Plan: Verified ASA Class: III Anesthesia Type: General [facility] History I have reviewed the patient's past medical history: Yes Medical History: Reports:: Gastroesophageal Reflux Disease(GERD), Kidney Stones, MRSA (TRACH, KNEE) Denies:: Cancer, Diabetes Mellitus Type 1, Diabetes Mellitus Type 2, Internal Pacemaker, Lung Disease, Seizures *Have you ever received a pneumonia vaccine?: No *Have you received a flu vaccine this season?: No Other Medical History: Reports: Arthritis, Other. Denies: Blood Transfusion Reaction Anesthesia experience/problems:: none Laterality Cases: Left: Arthroscopy Knee, Right: Arthroscopy Shoulder, B ilateral: Other Other Surgeries: Yes: No Previous Surgery, Cholecystectomy, Colonoscopy, Other. No: Pacemaker Amputation: Yes Fractures: Yes - *Social History Last grade of school completed: GED Smoking Status: Former smoker Alcohol Intake: never Alcohol Intake Frequency:: holidays/special occasions only Substance Use Type: denies use *Occupational Status:: disabled Housing: house Household Members: spouse *Travel in the last 8 weeks: None Family Hx:: Cancer, Heart Attack
--- NOTE | 2021-07-25 11:20 | P.PN_ITS ---
[facility] Anesthesia Record Part I Intake, IV Amount: 1,500 Estimated blood loss (mL): 0 Urine output (mL): 0 Blood Pressure: 148/83 SaO2: 94 Pulse Rate: 81 Respiratory Rate: 12 Temperature: 98.4 F Patient is:: Awake, Stable Stable to PACU at:: 11:15
--- NOTE | 2021-07-26 07:29 | HMH.ANESII ---
[facility] Anesthesia Record Part II Discharge Time: 11:45 Destination: Surgical Day Care (OP Surgery) PACU nurse assessment reviewed?: Yes Patient Condition:: Good Anesthesia Complications:: None Swallowing reflex intact?: Yes Cyanosis?: No Blood Pressure: 134/80 Pulse Rate: 71 Temperature: 98.1 F Mental Status: Alert & Oriented Pain level:: 4 Nausea and/or vomitting:: None Intake, IV Amount: 0
[2021-07-26 07:30] VITALS: BP 134/80; PULSE 71; TEMP 36.7
== END 2021-07-25 12:25 | disposition home or self-care (01) ==
LOC: OR 08:33
PROVIDERS: PCP Nurse Practitioner Family; Visit Provider Orthopaedic Surgery
PROC: (CPT 29870; principal; 2021-05-23 11:00)
DX: S83.231D Complex tear of medial meniscus, current injury, right knee, subsequent encounter (principal); M19.90 Unspecified osteoarthritis, unspecified site
CPT/HCPCS: 29881; 96374; J2405

== ENCOUNTER 2021-12-12 10:48 | Emergency (ER) | payer MEDICARE, SELFPAY ==
--- NOTE | 2021-12-12 10:43 | ECG_ITS ---
APPROVED REPORT Exam: Resting ECG HR:69 bpm ECG Measurements Heart Rate 69 AXES ME 180 P 45 QRSd 86 QRS 26 QT 358 T 39 QTc 377 Conclusion SINUS RHYTHM NORMAL ECG UNCONFIRMED REPORT Electronically signed by : Duran Crane MD 12/12/2021 21:06:19
[2021-12-12 10:51] VITALS: BP 159/108; PULSE 71; RESP 18; TEMP 36.9; O2SAT 97; BMI 25.7
[2021-12-12 10:56] VITALS: BMI 25.8
--- NOTE | 2021-12-12 10:56 | XR_ITS ---
FINAL REPORT CLINICAL HISTORY: chest pain COMPARISON: 09/24/2019 FINDINGS: SINGLE-VIEW CHEST The heart size is normal. The mediastinum is normal. There is mild left base atelectasis. There is no pneumothorax. IMPRESSION: Mild left base atelectasis. Reviewed, Interpreted and Dictated by Nate Bran III, MD Transcribed by Yasmeen Tesfaye Authenticated and [facility]
[2021-12-12 11:01] VITALS: BP 126/85; PULSE 77; RESP 24; O2SAT 93
--- NOTE | 2021-12-12 11:01 | PC.NURSE ---
Yasmeen Brown rounded on pts room
[2021-12-12 11:03] LABS: Basophils # 0.1 K/mm3 (0-0.2); Eosinophils # 0.2 K/mm3 (0.0-0.4); Eosinophils % 2.2 % (0.1-12.0); Hematocrit 49.6 % (42.0-52.0); Hemoglobin 16.9 g/dL (14.1-18.0); Lymphocytes # 1.8 K/mm3 (0.7-4.5); Lymphocytes % 22.3 % (10-50); Mean Corpuscular Volume 91.3 fl (80-94); Mean Platelet Volume 9.9 fl (7.4-10.4); Monocytes # 0.3 K/mm3 (0.1-1.0); Monocytes % 4.1 % (1.7-9.3); Neutrophils # 5.7 K/mm3 (1.8-7.8); Neutrophils % 70.3 % (37.0-80.0); Platelet Count 181 K/mm3 (142-424); Red Blood Count 5.44 M/mm3 (4.60-6.20); Red Cell Distribution Width 14.6 % (11.5-17.5); White Blood Count 8.1 K/mm3 (4.8-10.8)
--- NOTE | 2021-12-12 11:06 | PC.NURSE ---
rad at BS for portable xray
[2021-12-12 11:08] LABS: Blood Urea Nitrogen 14 mg/dl (9-20); Calcium 10.3 mg/dl (8.4-10.2); Carbon Dioxide 26 mmol/L (22.0-30.0); Chloride 100 mmol/L (98-107); Creatinine Clearance Estimated 86 mL/min (50-200); Estimated Glomerular Filt Rate 114 ml/min (>60); GFR (African American) 137 ML/MIN (>60); Glucose 185 mg/dl (74-100); Sodium 139 mmol/L (136-145)
--- NOTE | 2021-12-12 11:09 | PC.NURSE ---
notified ER pt is c/o increased pain radiating to his back. ER okayed nitro sl tablet
[2021-12-12 11:16] VITALS: BP 112/69; PULSE 78; RESP 17; O2SAT 94
--- NOTE | 2021-12-12 11:19 | PC.NURSE ---
pt reports pain is 3/10 now, reports nitroglycerin tablet has helped, states he feels like pain is starting to go away. pt looks more comfortable. ER MD made of the above, gave verbal order for lipase r/t pt reports hx of chronic pancreatiis.
[2021-12-12 11:20] LABS: Troponin I < 0.01 ng/ml (0.00-0.034)
[2021-12-12 11:30] VITALS: BP 121/82; PULSE 78; RESP 17; O2SAT 92
[2021-12-12 11:35] LABS: Lipase 577 U/L (23-300)
--- NOTE | 2021-12-12 13:23 | PC.NURSE ---
Rounded on patient, stated that chest pain is almost gone, but left shoulder pain upon inhalation and also pain when pushes on same area.
--- NOTE | 2021-12-12 14:01 | HMH.EDGENADL ---
Discharge Plan Disposition Patient Disposition: Home, Self-Care Condition: Good Prescriptions Prescriptions: No Action [id number]-[id number]-kzkzrua 1 EACH capsule,delayed release(DR/EC) 36,000 units PO DAILY aspirin 325 MG tablet 325 mg PO DAILY Qty: 14 0RF Rx Instructions: Take with breakfast starting 07/26 for 2 weeks oxycodone 5 MG tablet 5 mg PO Q4-6H PRN (Reason: Moderate To Severe Pain) Qty: 24 0RF Referrals Follow up/Referrals: Sepideh Herrmann APRN [Primary Care Provider] - See instructions Paco Brown MD [Staff Physician] - See instructions Activity Restrictions/Add. Instructions Additional Instructions/Restrictions: See Dr. Brown in his office tomorrow morning at 10:30 AM. Additional instructions for CHEST PAIN: Return immediately if worsening chest pain, vomiting, shortness of breath, fever, coughing of blood. Clinical Impressions Clinical Impression: Chest pain Stand Alone Forms Stand Alone Forms: Work/School Release Discharge ED Provider: Phong Razo General Adult HPI General Chief complaint: Chest Pain Stated complaint: chest pain Time Seen by Provider: 12/12/21 14:00 Mode of Arrival: Ambulatory Source of Information: Patient Limitations: No Limitations Description of Symptoms (Recalled from ER Triage Doc. by RN): pt c/o tightness in upper chest that began approx 3 am this morning. pt reports pain is radiating through to his back and under [place] shoulder blades. Pt describes pain as tightness in nature. Pt also reports tingling in fingers on L hand. Pt also reports SOA. History of Present Illness HPI narrative: Patient states that he began having some chest tightness with discomfort in his left shoulder and tingling of his left hand, shortness of breath, onset this morning. Chest discomfort is now gone. States that he has had this a couple of times over the past year but never sought evaluation for it. He has no known heart conditions. He does not have diabetes, hypertension, or hyperlipidemia. He is a former smoker. He has had a prior stress test, which she says was years ago. He has never had a heart cath. He also states that he has chronic pancreatitis. His current symptoms are not the same as previous pancreatitis, he says he typically gets severe abdominal pain with that and has had no abdominal pain recently. Related Data Home Medications Medication Instructions Recorded Confirmed [id number]-shhbkczi-dknzuwe 36,000 units PO DAILY pancreatitis 02/18/21 11/15/21 36,000-114,000-180,000 unit capsule,delay rel Previous Rx's Medication Instructions Recorded aspirin 325 mg tablet,delayed 325 mg PO DAILY #14 tabs 07/25/21 release oxycodone 5 mg tablet 5 mg PO Q4-6H PRN Moderate To 07/25/21 Severe Pain #24 tabs Allergies Allergy/AdvReac Type Severity Reaction Status Date / Time codeine Allergy Unknown HYPER Verified 11/15/21 10:23 [facility] Social History Smoking Status: Never smoker alcohol intake: never substance use type: denies use current occupational status: disabled Travel in the last 8 weeks: None household members: spouse housing: house caffeine: Yes ROS Obtained: Yes Systems reviewed as appropriate & no additional complaints except as documented Constitutional Constitutional: Denies fever(s), Denies headache(s) and Denies weakness ENT Ears, Nose, Mouth, and Throat: Denies headache(s), Denies nasal discharge and Denies sore throat Cardiovascular Cardiovascular: Denies chest pain Respiratory Respiratory: Reports shortness of breath and Denies cough Gastrointestinal Gastrointestingal: Denies abdominal pain, constipation, diarrhea or vomiting Genitourinary Male Genitourinary: Denies difficulty urinating and Denies flank pain Musculoskeletal Musculoskeletal: Denies numbness and Reports tingling Neurologic Neurologic: Denies headache(s), Denies
[2021-12-12 14:22] LABS: Troponin I < 0.01 ng/ml (0.00-0.034)
[2021-12-12 15:00] VITALS: BP 123/78; PULSE 76; RESP 18; TEMP 36.6; O2SAT 97
== END 2021-12-12 15:00 | disposition home or self-care (01) ==
PROVIDERS: Emergency Provider Emergency Medicine; PCP Nurse Practitioner Family
DX: R07.9 Chest pain, unspecified (principal); R06.02 Shortness of breath; Z87.19 Personal history of other diseases of the digestive system; Z79.899 Other long term (current) drug therapy; Z88.6 Allergy status to analgesic agent
CPT/HCPCS: 71045; 80048; 83690; 84484; 85025; 93005; 99284

== ENCOUNTER → 2021-12-19 06:20 | Outpatient (CLI) | payer MEDICARE, SELFPAY ==
--- NOTE | 2021-12-19 06:22 | CA_ITS ---
APPROVED REPORT Exam: Exercise Treadmill Technologist: Jillian Gee, Ht: 5 ft 10 in Wt: 221 lbs BSA: 2.18 m2 HR: 58 bpm BP: 157/100 mmHg Rhythm: SINUS BRANDO, LEFT POSTERIOR FASCICULAR BLOCK, INFERIOR T WAVE ABNS Indications: CP Medical History Medical History: HTN Medications: Aspirin,,,,, Toprol XL,,,,, MpuPjg-ceyvabts-nyvnfed,,,,, Allergies: CODEINE Cardiac Risk Factors: HTN, FHX of CAD Stress Test Details Test: Rhett HR Resting HR: 62 bpm Max Heart Rate (APMHR): 156.810645 bpm Max HR Achieved: 142 bpm Target HR (85% APMHR): 132.944788 bpm % of APMHR: 91.03 Recovery HR: 84 bpm BP Resting BP: 155/95 mmHg Max BP: 210/96 mmHg Recovery BP: 160.0/85.0 mmHg ECG Resting ECG: SINUS BRANDO, LEFT POSTERIOR FASCICULAR BLOCK, INFERIOR T WAVE ABNS Clinical Exercise duration: 09:30 min Highest Stage Achieved: Stage 4: 4.2 mph at 16% grade. Exercise capacity: 10.1 METs Stress ECG Conclusion PT EXERCISED 9:30 ON RHETT PROTOCOL MAX HR: 139 % OF PM: 89% MAX BP: 210/96 METS: 10.1 TEST STOPPED DUE TO: SOA, FATIGUE NO CP OCC PAC, OCC PVC, ONE VENTRICULAR COUPLET 0.5-1MM UPSLOPING ST DEPRESSION LATERALLY NON DIAGNOSTIC GXT DUE TO BASELINE ABNS MYOVIEW IMAGES REPORTED SEPARATELY Test Summary REST . . . . . . . Sitting REST . . . . . . . Standing REST 04:05 0.0 0.0 62 . 155/ 95 . . Stage 1 01:00 10.0 1.7 91 . . . . Stage 1 02:00 10.0 1.7 95 . . . . Stage 1 03:00 10.0 1.7 92 . 166/ 80 . . Stage 2 01:00 12.0 2.5 103 . . . . Stage 2 02:00 12.0 2.5 105 . . . . Stage 2 03:00 12.0 2.5 108 . 182/ 82 . . Stage 3 01:00 14.0 3.4 121 . . . . Stage 3 02:00 14.0 3.4 125 . . . . Stage 3 03:00 14.0 3.4 130 . . . . Stage 4 00:30 16.0 4.2 139 . . . Stop exercise at 09:30 RECOVERY 01:00 0.0 0.0 112 . . . . RECOVERY 02:00 0.0 0.0 86 . . . . RECOVERY 03:00 0.0 0.0 81 . 210/ 96 . . RECOVERY 04:00 0.0 0.0 78 . 163/ 84 . . RECOVERY 05:00 0.0 0.0 84 . 160/ 85 . . RECOVERY 05:23 0.0 0.0 83 . 160/ 85 . . Electronically signed by : Anil Pineda MD 12/20/2021 16:11:20
--- NOTE | 2021-12-19 06:22 | CA_ITS ---
APPROVED REPORT EXAM: Comprehensive 2D, Doppler, and color-flow Echocardiogram Mine Safety Manager: Farhana Gonzales CRT Ht: 5 ft 10 in Wt: 221lbs BSA: 2.18 BP: 157/95 mmHg Indications: Chest Pain 2D Dimensions LVOT 2.09 cm (M/F) 1.5-2.5 M-Mode Dimensions RVDd 2.46 cm (0.9-2.6) LA Diam 3.28 cm (1.9-4.0) LVDd 5.18 cm (3.5-5.7) Ao Diam 4.71 cm (2.0-3.7) LVDs 2.68 cm (3.5-5.7) IVSd 1.21 cm (0.6-1.1) PWd 0.75 cm (0.6-1.1) EF (Teich) 79.40% FS 48.30% EDV (Teich) 128.40 mL TAPSE 2.15 (<1.7) ESV (Teich) 26.50 mL LV Diastology E Decel Time 243.00 (160-240 msec) E/A Ratio 1.05 MED E' 7.80 (< 7 cm/sec) MED A' 9.90 cm/s E'/MED E' Ratio 6.97 (>14) LAT E' 9.00 (<10 cm/sec) LAT A' 8.90 cm/s E/LAT E' Ratio 6.04 (>14) Aortic Valve AI PHT 763.00 ms AO Peak GR. 3.60 mmHg Mitral Valve MV A Velocity 52.00 (40-130 cm/s) E/A Ratio 1.05 MV Decel. Time 243.00 (160-240 ms) Pulmonary Valve PV Peak Velocity 141.00 (50-150 cm/s) Tricuspid Valve TR P. Velocity 226.00 cm/s RAP Estimate 10.00 mmHg RVSP 30.50 mmHg Left Ventricle Left atrium is normal size left ventricle is normal size there is no concentric left ventricular hypertrophy, estimated ejection fraction 55% with no regional wall motion abnormality, diastolic parameters are within normal range. Right Ventricle Right atrium and right ventricle are normal size and contractility. Aortic Valve Aortic valve is minimally thickened and fibrosed there is no aortic stenosis, there is trace aortic insufficiency. Mitral Valve Mitral valve grossly normal, there is trace mitral regurgitation. Tricuspid Valve Tricuspid valve grossly normal, there is trace tricuspid regurgitation, tricuspid regurgitation jet velocity is inadequate for calculation of the right ventricular systolic pressure. Pulmonic Valve Pulmonic valve is poorly visualized. Great Vessels Aortic root is normal size. Inferior vena cava is poorly visualized. Pericardium No significant pericardial effusion noted. Conclusion 1. Normal left ventricular size preserved left ventricular systolic function, estimated ejection fraction 55% with no regional wall motion abnormality, diastolic parameters are within normal range. 2. Trace aortic, mitral and tricuspid regurgitation. 3. No significant pericardial effusion noted. 4. Inferior vena cava is poorly visualized. Electronically signed by : Anil Pineda MD 12/19/2021 19:05:26
--- NOTE | 2021-12-19 06:22 | NM_ITS ---
APPROVED REPORT Exam: Nuclear Stress Test Indication: Chest pain, Family history Patient Location: Outpatient Stress Tech: Jillian George SD Tech:Wendy Rodriguez, ARRT, RT (R)(N) Ht: 5 ft 10 in Wt: 220 lbs HR: 62 bpm BP: 155/95 mmHg BSA: 2.17 m2 TID: 0.99 BMI: 31.5 History: Chest pain, Family history Procedure: Patient exercised on Rhett protocol 9:30 minutes and sec, resting heart rate 62 bpm, resting blood pressure 155/95 mmHg, with exercise maximum heart rate achived was 142 bpm which is 91 % of the maximum predicted heart rate and blood pressure was 210/96 mmHg. Test was stopped due to SOB. Patient denied any complaint of chest pain. Patient has Good exercise capacity, achieved 10.1 METs of workload on treadmill, the blood pressure response to exercise was Hypertensive. Electrocardiogram Resting electrocardiogram showed sinus rhythm, with exercise there is less than 1.[address] segment depression noted from the baseline EKG. The EKG portion of the exercise Myoview is negative for ischemia. Cardiac Stress and Resting SPECT Images: Cardiac Stress and Resting SPECT images were obtained using technetium 99m Myoview 31.1 mCi stress and 10.15 mCi at rest. Gated SPECT for analysis of segmental wall motion and calculation of the ejection fraction also done. Cardiac stress and rest SPECT images show uniform myocardial activity without segmental perfusion abnormality, computer derived ejection fraction is 44% with no regional wall motion abnormality, right ventricle is normal size and contractility. Conclusion: 1. The EKG portion of the exercise Myoview is negative for ischemia, patient has good exercise capacity achieved 10.1 METs of workload on treadmill, the blood pressure response to exercise was hypertensive there was no exercise-induced chest discomfort. 2. No scintigraphic evidence of reversible ischemia seen at this level of exercise, computer derived ejection fraction 44% with no regional wall motion abnormality, right ventricle is normal size and contractility. Electronically signed by : Anil Pineda MD 12/20/2021 16:19:47
--- NOTE | 2021-12-19 08:18 | HMH.ITSHM ---
Current Home Medications as stated by this patient Saurabh Guzman or quality assurance representative. []METOPROLOL ASA
[2021-12-19 11:02] LABS: Alanine Aminotransferase 23 U/L (12-78); Albumin Level 4.1 g/dl (3.5-5.0); Alkaline Phosphatase 60 U/L (38-126); Aspartate Amino Transferase 25 U/L (17-59); Bilirubin,Direct 0.1 mg/dl (0.0-0.4); Bilirubin,Indirect 0.5 mg/dL (0.0-0.9); Bilirubin,Total 0.6 mg/dl (0.2-1.3); Bilirubin,Unconjugated 0.5 mg/dL (0.0-1.1); Chol/HDL Ratio 3.6 (1-3.5); Cholesterol 174 mg/dl (140-200); HDL Cholesterol 49 mg/dl (40-60); Total Protein,Serum 6.4 g/dl (6.3-8.2); Triglycerides 94 mg/dl (30-150); VLDL Cholesterol 19 mg/dL (0-40)
[2021-12-19 11:13] LABS: Direct LDL Cholesterol 96.95 mg/dL (100-129)
== END ==
PROVIDERS: PCP Nurse Practitioner Family; Visit Provider Nurse Practitioner Family
DX: R00.0 Tachycardia, unspecified (principal); R06.00 Dyspnea, unspecified; R07.9 Chest pain, unspecified; Z87.891 Personal history of nicotine dependence
CPT/HCPCS: 36415; 78452; 80061; 80076; 93017; 93306; A9502

== ENCOUNTER → 2022-02-21 12:49 | Outpatient (CLI) | payer MEDICARE, SELFPAY ==
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
== END ==
PROVIDERS: PCP Nurse Practitioner Family; Visit Provider Orthopaedic Surgery
DX: M75.102 Unspecified rotator cuff tear or rupture of left shoulder, not specified as traumatic (principal); M25.512 Pain in left shoulder
CPT/HCPCS: 73221

== ENCOUNTER 2022-03-23 08:31 | Emergency (ER) | payer MEDICARE, SELFPAY ==
[2022-03-23 09:00] VITALS: BP 143/93; PULSE 73; RESP 20; TEMP 37.2; O2SAT 94; BMI 31.5
--- NOTE | 2022-03-23 09:02 | XR_ITS ---
FINAL REPORT CLINICAL HISTORY: pain rt foot FINDINGS: Right foot Three views were obtained. There is no acute fracture or dislocation. There is a small plantar spur. There is mild narrowing of the 1st interphalangeal joint. No soft tissue abnormality is identified. IMPRESSION: No acute process. Reviewed, Interpreted and Dictated by Flaquito Stahl MD Transcribed by Yasmeen Tesfaye Authenticated and [facility]
--- NOTE | 2022-03-23 10:12 | EXP.UTC ---
Discharge Plan Disposition Patient Disposition: Home, Self-Care Condition: Good Prescriptions Prescriptions: New prednisone [prednisone] 20 mg tablet 20 mg PO BID 5 Days Qty: 10 0RF doxycycline monohydrate 100 mg tablet 100 mg PO BID 10 Days Qty: 20 0RF diclofenac sodium [Voltaren Arthritis Pain] 1 % gel 2 g topical QID Qty: 100 0RF Rx Instructions: apply to single elbow, wrist or hand; for hand includes palm/fingers/back of hand prednisone [prednisone] 20 mg tablet 20 mg PO BID 5 Days Qty: 10 0RF doxycycline monohydrate 100 mg tablet 100 mg PO BID 10 Days Qty: 20 0RF No Action sildenafil 100 mg tablet 100 mg PO DAILY PRN (Reason: .) Label Comments: TAKE ONE TABLET BY MOUTH ONCE DAILY NEEDED APPROXIMATELY ONE HOUR BEFORE SEXUAL ACTIVITY. [id number] 1 EACH capsule,delayed release(DR/EC) 36,000 units PO DAILY aspirin [Adult Low Dose Aspirin] 81 mg tablet,delayed release (DR/EC) 81 mg PO DAILY metoprolol succinate [Toprol XL] 25 mg tablet extended release 24 hr 25 mg PO QHS Referrals Follow up/Referrals: Sepideh Herrmann APRN [Primary Care Provider] - See instructions Clinical Impressions Clinical Impression: Acute pain of right foot Instructions Patient Instructions: DI for Foot Pain Discharge ED Provider: Ailyn Leon [facility] General Stated complaint: RT foot pain no accident Mode of Arrival: Ambulatory Source of Information: Patient Limitations: No Limitations Time Seen by Provider: 03/23/22 10:24 Description of Symptoms (Recalled from Triage Doc. by RN): right foot pain HEENT Symptoms (Recalled from RN notes): No Resp Symptoms (Recalled from RN notes): No Skin Symptoms (Recalled from RN notes): No MS Symptoms (Recalled from RN notes): Yes Functional Status (Recalled from RN notes): n/a History of Present Illness Provider Complaint: Right foot pain X 2 days. Walks a lot, but does not recall a specific injury. Started hurting even more last night. Hurts even at rest. Hurts on the outer aspect of his foot. Onset (ago): day(s) (2) Location: right and lower extremity Relieving factors: none Exacerbating factors: none Associated symptoms: denies other symptoms Treatments prior to arrival: none Related Data Home Medications Medication Instructions Recorded Confirmed [id number]-[id number]-[id number] 36,000 units PO DAILY pancreatitis 02/18/21 03/23/22 36,000-114,000-180,000 unit capsule,delay rel sildenafil 100 mg tablet 100 mg PO DAILY PRN . 01/02/22 03/23/22 aspirin 81 mg tablet,delayed 81 mg PO DAILY . 03/23/22 03/23/22 release (Adult Low Dose Aspirin) metoprolol succinate 25 mg 25 mg PO QHS . 03/23/22 03/23/22 tablet,extended release 24 hr (Toprol XL) Previous Rx's Medication Instructions Recorded diclofenac sodium 1 % topical gel 2 g topical QID #100 grams 03/23/22 (Voltaren Arthritis Pain) doxycycline monohydrate 100 mg 100 mg PO BID 10 days #20 tabs 03/23/22 tablet doxycycline monohydrate 100 mg 100 mg PO BID 10 days #20 tabs 03/23/22 tablet prednisone 20 mg tablet 20 mg PO BID 5 days #10 tabs 03/23/22 prednisone 20 mg tablet 20 mg PO BID 5 days #10 tabs 03/23/22 Allergies Allergy/AdvReac Type Severity Reaction Status Date / Time codeine Allergy Unknown HYPER Verified 03/23/22 09:09 Worker's Comp Is this a Worker's Comp case?: No [facility] Disclaimer: The information contained in this section may have been updated after the patient was seen, as this information can be updated by other users. Medical History Abnormal electrocardiogram [ECG] [EKG] Hypertension Sinus tachycardia Surgical History History of arthroplasty of right shoulder History of cholecystectomy History of knee replacement Family History Mother Margi
[2022-03-23 11:02] VITALS: BP 143/93; PULSE 73; RESP 20; TEMP 37.2; O2SAT 94
== END 2022-03-23 11:02 | disposition home or self-care (01) ==
PROVIDERS: Emergency Provider Physician Assistant; PCP Nurse Practitioner Family
DX: M79.671 Pain in right foot (principal)
CPT/HCPCS: 73630; 99212; 99213; G0463

== ENCOUNTER → 2022-04-04 15:17 | Outpatient (CLI) | payer MEDICARE, SELFPAY ==
[2022-04-04 16:48] LABS: Alanine Aminotransferase 21 U/L (12-78); Albumin Level 4.1 g/dl (3.5-5.0); Alkaline Phosphatase 48 U/L (38-126); Aspartate Amino Transferase 26 U/L (17-59); Bilirubin,Direct 0.2 mg/dl (0.0-0.4); Bilirubin,Indirect 0.5 mg/dL (0.0-0.9); Bilirubin,Total 0.7 mg/dl (0.2-1.3); Bilirubin,Unconjugated 0.5 mg/dL (0.0-1.1); Chol/HDL Ratio 3.3 (1-3.5); Cholesterol 165 mg/dl (140-200); HDL Cholesterol 50 mg/dl (40-60); Total Protein,Serum 6.5 g/dl (6.3-8.2); Triglycerides 142 mg/dl (30-150); VLDL Cholesterol 28 mg/dL (0-40)
[2022-04-04 17:08] LABS: Direct LDL Cholesterol 91.09 mg/dL (100-129)
== END ==
PROVIDERS: PCP Nurse Practitioner Family; Visit Provider Nurse Practitioner
DX: I11.9 Hypertensive heart disease without heart failure (principal); R94.31 Abnormal electrocardiogram [ECG] [EKG]; Z87.891 Personal history of nicotine dependence
CPT/HCPCS: 36415; 80061; 80076

== ENCOUNTER → 2022-05-16 10:33 | Outpatient (CLI) | payer MEDICARE, SELFPAY ==
--- NOTE | 2022-05-16 10:49 | ECG_ITS ---
APPROVED REPORT Exam: Resting ECG HR:65 bpm ECG Measurements Heart Rate 65 AXES AL 156 P 10 QRSd 105 QRS 82 QT 383 T 54 QTc 395 Conclusion SINUS RHYTHM NORMAL ECG UNCONFIRMED REPORT Electronically signed by : Duran Crane MD 05/16/2022 17:35:06
--- NOTE | 2022-05-16 11:10 | XR_ITS ---
FINAL REPORT TECHNIQUE: Chest PA & Lateral CLINICAL HISTORY: pre-op COMPARISON: 12/12/2021 FINDINGS: 2 views of the chest were performed. The heart size is normal. The mediastinum is within normal limits. There is scarring at the left lung base. There is no acute cardiopulmonary process. There are no pleural effusions. There is no pneumothorax. The bony thorax appears intact. IMPRESSION: No acute cardiopulmonary process. Reviewed, Interpreted and Dictated by Flaquito Stahl MD Transcribed by Bre Zacarias Authenticated and [facility]
[2022-05-16 11:15] LABS: Basophils # 0.1 K/mm3 (0-0.2); Basophils % 0.9 % (0.1-2.0); Eosinophils # 0.4 K/mm3 (0.0-0.4); Eosinophils % 5.2 % (0.1-12.0); Hematocrit 49.5 % (42.0-52.0); Lymphocytes # 1.9 K/mm3 (0.7-4.5); Lymphocytes % 26.6 % (10-50); Mean Corpuscular HGB Conc 32.2 g/dL (31.8-35.4); Mean Corpuscular Volume 93.2 fl (80-94); Mean Platelet Volume 10.6 fl (7.4-10.4); Monocytes # 0.4 K/mm3 (0.1-1.0); Monocytes % 5.5 % (1.7-9.3); Neutrophils # 4.3 K/mm3 (1.8-7.8); Neutrophils % 61.8 % (37.0-80.0); Platelet Count 173 K/mm3 (142-424); Red Blood Count 5.32 M/mm3 (4.60-6.20); Red Cell Distribution Width 13.7 % (11.5-17.5); White Blood Count 6.9 K/mm3 (4.8-10.8)
[2022-05-16 11:46] LABS: Chloride 106 mmol/L (98-107); Sodium 139 mmol/L (136-145)
[2022-05-16 11:47] LABS: Potassium 4.4 mmoL/L (3.5-5.1)
[2022-05-16 11:49] LABS: Alanine Aminotransferase 19 U/L (12-78); Albumin Level 4.1 g/dl (3.5-5.0); Albumin/Globulin Ratio 1.7 (1.1-1.8); Alkaline Phosphatase 48 U/L (38-126); Anion Gap 9.4 mEq/L (5-15); Aspartate Amino Transferase 23 U/L (17-59); Bilirubin,Total 0.6 mg/dl (0.2-1.3); Blood Urea Nitrogen 16 mg/dl (9-20); Carbon Dioxide 28 mmol/L (22.0-30.0); Estimated Glomerular Filt Rate 85 ml/min (>60); GFR (African American) 103 ML/MIN (>60); Globulin 2.4 g/dL (1.3-3.2); Total Protein,Serum 6.5 g/dl (6.3-8.2)
[2022-05-16 11:50] LABS: Calcium 9.1 mg/dl (8.4-10.2); Glucose 135 mg/dl (74-100)
== END ==
LOC: LAB 10:34
PROVIDERS: PCP Nurse Practitioner Family; Visit Provider Orthopaedic Surgery
DX: R07.89 Other chest pain (principal); Z01.818 Encounter for other preprocedural examination
CPT/HCPCS: 36415; 71046; 80053; 85025; 93005

== ENCOUNTER 2022-05-22 11:38 | Day surgery (SDC) | payer MEDICARE, SELFPAY ==
[2022-05-16 11:35] VITALS: BMI 31.2
[2022-05-22] VITALS (10 sets, daily range): BP systolic 126–158; BP diastolic 69–76; PULSE 58–79; RESP 13–18; TEMP 36.1–43; O2SAT 91–97
--- NOTE | 2022-05-22 14:18 | EXP.OP.NOTE ---
Date of procedure: 05/22/22 Pre-op Diagnosis:: Left shoulder rotator cuff tear, biceps tenosynovitis and subacromial bursitis Post-op Diagnosis:: Same Procedure performed:: Left shoulder arthroscopy with rotator cuff repair and extensive debridement to include biceps tenotomy, labral debridement and bursectomy Surgeon:: Luis M Boo MD Window Trimmer(s):: MELANI Gillette ROPER OPERATOR:: Arpan Feejoycelyn Anesthesia: GETA and regional Estimated blood loss (mL): 5 Clinical Note:: Saurabh is a very pleasant 66-year-old male who has been struggling with left shoulder pain over the past year. An MRI in February revealed a 1 cm full-thickness tear of the supraspinatus with no significant rotator cuff muscle atrophy. Mild degenerative changes and medial subluxation of the long head biceps tendon. He has failed conservative treatment measures including cortisone injection and rotator cuff exercises. We discussed all the risks, benefits and alternatives left shoulder arthroscopy for rotator cuff repair and he agreed to proceed. Surgical consent form was signed. Operative findings:: Left shoulder full-thickness tear of the supraspinatus, crescent-shaped about 1 cm in size. Mild glenohumeral joint degenerative changes. Significant fraying and partial tearing of the long head biceps tendon. Subacromial bursitis. Operative note:: The patient was seen in the preoperative holding area. The left shoulder was marked to confirm the correct operative site. He received Ancef 2 g IV prophylactic antibiotics within 1 hour of incision time. A left upper extremity interscalene block was performed by anesthesia in preop for perioperative pain control. He was brought back to the OR. General anesthesia induced without difficulty. He was placed in the lateral decubitus position held in place with a beanbag. Axillary roll was placed. He was placed in the arm coffey with 15 pounds of traction after the left upper extremity had been prepped and draped in the usual sterile fashion. Timeout was performed to confirm left shoulder arthroscopy with rotator cuff repair on patient Saurabh Guzman. I made a posterior lateral viewing portal with an 11 blade scalpel. Arthroscope was introduced into the joint. I then made an anterior superior portal localizing this with a spinal needle and this incision was made with an 11 blade scalpel. We inserted a 5.5 mm orange cannula over a switching stick. Diagnostic arthroscopy commenced. He was seen to have mild chondromalacia of the glenohumeral joint. There is significant fraying and partial tearing of the long head biceps tendon. We performed a biceps tenotomy using a combination of the electrocautery wand and a 4.0 mm shaver. The long head biceps tendon was released from the superior labrum and then the labrum was debrided back to smooth stable border. The glenoid was debrided with a shaver removing any unstable cartilage flaps. There was no full-thickness cartilage loss. There was seen to be partial tearing of the subscapularis tendon but no full-thickness tear was seen. [place]-shaped tear of the supraspinatus was debrided from the articular side with a shaver. The scope was then redirected in the subacromial space. A lateral portal was established and a 7.0mm purple cannula was placed. A bursectomy was performed using a combination of the shaver and the electrocautery wand. There was significant inflammation of the subacromial bursa as well as fraying on the bursal side of the rotator cuff. Edges of the crescent-shaped tear of the supraspinatus were debrided back to a stable border. The greater tuberosity was debrided for rotator cuff repair. Through an accessory lateral portal we then placed a 5.5 mm Mitek anchor triple loaded with Juany cord. We then used the Express sew suture passer to pass all 6 suture limbs going anterior to posterior through the rotator cuff tear. As the sutures were passed they were brought out the anterior portal
--- NOTE | 2022-05-22 14:28 | P.PN_ITS ---
[facility] Disclaimer: The information contained in this section may have been updated after the patient was seen, as this information can be updated by other users. Medical History Abnormal electrocardiogram [ECG] [EKG] Hypertension Pancreatitis Sinus tachycardia Surgical History History of arthroplasty of right shoulder History of cholecystectomy History of facial surgery History of knee replacement History of skin graft Family History Mother Cancer Father Heart attack Hypertension Sister Heart murmur Social History Smoking Status: Never smoker alcohol intake: never substance use type: denies use current occupational status: disabled Travel in the last 8 weeks: None household members: spouse housing: house caffeine: Yes [facility] Anesthesia Checklist Patient Identification Patient Identification: Arm Band Structural Data Admitted From: Home Planned Operative Procedure/s: Left Shoulder Arthroscopy, Rotator Cuff Repair Consent for Planned Operative Procedure(s) Verified: Yes Verified Documents: Surgical Consent and History and Physical NPO Status Verified Time NPO: 00:00 Additional verifications Anesthesia Reactions: No Hx Blood Transfusions: No Blood Transfusion Reaction: No Airway Assessment C-Spine Mobility Assessed: Yes TMJ Mobility Assessed: Yes Dentition: Poor Dentition Neurological Assessment Level of Consciousness: Awake and Alert Anesthesia Plan Anesthesia Risk discussed: Yes Anesthesia Plan: Verified ASA Class: II Anesthesia Type: General w/block (Left Interscalene Nerve Block. Risks/Benefits explained. Pt verbalized understanding)
--- NOTE | 2022-05-22 14:29 | EXP.ANES.I ---
[facility] Anesthesia Record Part I Anesthesia Record I Intake, IV Amount: 1,000 Estimated blood loss (mL): 5 Urine output (mL): 0 Blood Products used (#): none Blood Pressure: 158/69 SaO2: 91 Pulse Rate: 70 Respiratory Rate: 16 Temperature: 97.4 F Patient is:: Drowsy and Stable Stable to PACU at:: 14:25
--- NOTE | 2022-05-22 14:59 | EXP.ANES.II ---
[facility] Anesthesia Record Part II Anesthesia Record Part II Discharge Time: 14:45 Destination: Surgical Day Care (OP Surgery) PACU nurse assessment reviewed?: Yes Patient Condition:: Good Anesthesia Complications:: None Swallowing reflex intact?: Yes Cyanosis?: No Blood Pressure: 130/73 Pulse Rate: 71 Temperature: 97 F Mental Status: Alert & Oriented Pain level:: 0 Nausea and/or vomitting:: None Intake, IV Amount: 0
== END 2022-05-22 15:16 | disposition home or self-care (01) ==
PROVIDERS: PCP Nurse Practitioner Family; Visit Provider Orthopaedic Surgery
PROC: (CPT 29827; principal; 2022-05-22 13:15)
DX: M75.102 Unspecified rotator cuff tear or rupture of left shoulder, not specified as traumatic (principal); M75.52 Bursitis of left shoulder; M75.22 Bicipital tendinitis, left shoulder; M65.822 Other synovitis and tenosynovitis, left upper arm
CPT/HCPCS: 29827; 29826; 29828; 96374; C1713; J2405

== ENCOUNTER 2024-07-09 09:14 | Outpatient (CLI) | payer MEDICARE, SELFPAY ==
[2024-07-11 20:49] LABS: QuantiFERON-TB Gold Plus Negative (Negative)
== END 2024-07-09 23:59 | disposition home or self-care (01) ==
LOC: LAB 09:15
PROVIDERS: PCP Nurse Practitioner; Visit Provider Nurse Practitioner
DX: Z11.1 Encounter for screening for respiratory tuberculosis (principal)
CPT/HCPCS: 36415; 86480

== ENCOUNTER 2024-07-21 14:29 | Outpatient (CLI) | payer MEDICARE, SELFPAY ==
--- OUTSIDE RECORDS SUMMARY | 2024-07-21 14:33 | XMS_ITS | Clinical Summary ---
Author Organization Healthcare Address [address] [id number] Care Team Providers Care Fire Protection Equipment Technician Name Role Phone Duran Jiménez MD Primary Care Provider [phone] Social History Tobacco Use Types Packs/Day Years Used Date Smoking Tobacco: Never Assessed Sex and Gender Information Value Date Recorded Sex Assigned at Not on file Legal Sex Male 7:50 PM EDT Gender Identity Not on file Sexual Orientation Not on file Plan of Treatment Health Maintenance Due Date Last Done Comments Dental Oral Exam 1957 Dental Prophylaxis 1957 Dental X-Ray: Bitewings 1957 [facility]-Depression Screening 1957 [facility]-Infant/Child/Adol SDOH Screenings 1957 [facility]- SDOH Screenings 11/04/1975 [facility]-Adult SDOH Screenings 11/04/1975 [facility]-DTaP,Tdap,and Td Vaccine s (1 - Tdap) 1976 CT Colonography 2002 Colonoscopy 2002 FIT-DNA 2002 FIT 2002 FOBT 2002 Sigmoidoscopy 2002 [facility]-Colorectal Cancer Screening 2002 [facility]-Pneumococcal Vaccine: 50 + Years (1 of 1 - PCV) 11/04/2007 [facility]-Zoster Vaccines (1 of 2) 11/04/2007 Dental X-Ray: Full Mouth 05/27/2010 05/27/2007 [id number] Vaccine (1 - 20 24-25 season) 2023 [facility]-Influenza Vaccine (Seaso n Ended) 2024 [facility]-RSV Vaccine: 60+ Years o r (1 - 1-dose 75+ series) 2032 HPV Vaccines Aged Out No longer eligi ble based on patient's age to complete this topic [facility]-HIB Vaccines Aged Out No longer e ligible based on patient's age to complete this topic [facility]-Hepatitis A Vaccines Aged Out No longer eligible based on patient's age to complete this topic [facility]-IPV Vaccines Aged Out No longer e ligible based on patient's age to complete this topic [facility]-Rotavirus Vaccines Aged Out No lo nger eligible based on patient's age to complete this topic Procedures Procedure Name Priority Date/Time Associated Diagnosis Comments PANORAMIC RADIOGRAPHIC IMAGE Routine 05/27/2007 12:00 AM EDT from Last 3 Months or Most Recently Relevant to Health Maintenance Care Teams Fire Protection Equipment Technician Relationship Specialty Start Date End Date Duran Jiménez MD [address] [place] [address] PCP - General 06/24/20
--- OUTSIDE RECORDS SUMMARY | 2024-07-21 14:33 | XMS_ITS | Encounter Summary ---
Author Organization Healthcare Address [address] [place] [address] Care Team Providers Care Motor Scooter Repairer Name Role Phone Duran Jiménez MD Primary Care Provider [phone] Encounter Details Date Type Department Care Team (Late st Contact Info) Description 04/24/2023 Community [facility] Community Practice [address] [place] [address] Alvarez Munoz MD [address] [place] [address] Social History Tobacco Use Types Packs/Day Years Used Date Smoking Tobacco: Never Assessed Sex and Gender Information Value Date Recorded Sex Assigned at Not on file Legal Sex Male 7:50 PM EDT Gender Identity Not on file Sexual Orientation Not on file documented as of this encounter Plan of Treatment Not on file documented as of this encounter Visit Diagnoses Not on filedocumented in this encounter Care Teams Motor Scooter Repairer Relationship Specialty Start Date End Date Duran Jiménez MD [address] [place] [address] PCP - General 06/24/20 documented as of this encounter
[2024-07-21 15:11] LABS: Basophils # 0.1 K/mm3 (0-0.2); Basophils % 0.8 % (0.1-2.0); Eosinophils # 0.4 Kmm3 (0.0-0.4); Eosinophils % 5.7 % (0.1-12.0); Hematocrit 49.2 % (42.0-52.0); Hemoglobin 15.9 g/dL (14.1-18.0); Immature Granulocytes # 0.03 10^3uL; Immature Granulocytes % 0.4 %; Lymphocytes # 1.7 K/mm3 (0.7-4.5); Mean Corpuscular HGB Conc 32.3 g/dL (31.8-35.4); Mean Corpuscular Hemoglobin 28.6 pg (27.0-31.2); Mean Corpuscular Volume 88.5 fl (80-94); Monocytes # 0.5 K/mm3 (0.1-1.0); Monocytes % 6.9 % (1.7-9.3); Neutrophils # 4.7 K/mm3 (1.8-7.8); Neutrophils % 63.2 % (37.0-80.0); Nucleated Red Blood Cells # 0 10^3/uL; Nucleated Red Blood Cells % 0 %; Platelet Count 149 K/mm3 (142-424); Red Blood Count 5.56 M/mm3 (4.60-6.20); Red Cell Distribution Width 13.9 % (11.5-17.5); Red Cell Distribution Width-SD 44.7 fL; White Blood Count 7.4 K/mm3 (4.8-10.8)
[2024-07-21 15:45] LABS: Alanine Aminotransferase 26 U/L (12-78); Albumin Level 4.5 g/dl (3.5-5.0); Albumin/Globulin Ratio 1.7 (1.1-1.8); Alkaline Phosphatase 54 U/L (38-126); Amylase 95 U/L (30-110); Anion Gap 10.2 mEq/L (5-15); Aspartate Amino Transferase 28 U/L (17-59); Bilirubin,Total 0.6 mg/dl (0.2-1.3); Blood Urea Nitrogen 19 mg/dl (9-20); Calcium 9.4 mg/dl (8.4-10.2); Carbon Dioxide 26 mmol/L (22.0-30.0); Chloride 105 mmol/L (98-107); Estimated Glomerular Filt Rate 97 ml/min (>60); GFR (African American) 117 ML/MIN (>60); Globulin 2.6 g/dL (1.3-3.2); Glucose 204 mg/dl (74-100); Lipase 372 U/L (23-300); Potassium 4.2 mmoL/L (3.5-5.1); Sodium 137 mmol/L (136-145); Total Protein,Serum 7.1 g/dl (6.3-8.2)
[2024-07-22 13:14] LABS: CA 19-9 35 U/mL (0-35)
== END 2024-07-21 23:59 | disposition home or self-care (01) ==
LOC: LAB 14:30
PROVIDERS: PCP Nurse Practitioner; Visit Provider Nurse Practitioner Family
DX: K86.1 Other chronic pancreatitis (principal)
CPT/HCPCS: 36415; 80053; 82150; 83690; 85025; 86301

== ENCOUNTER 2024-08-27 07:22 | Outpatient (CLI) | payer MEDICARE, SELFPAY ==
--- OUTSIDE RECORDS SUMMARY | 2024-08-27 07:25 | XMS_ITS | Encounter Summary ---
Author Organization Healthcare Address [address] [place] [address] Care Team Providers Care Manager Payroll Name Role Phone Duran Jiménez MD Primary Care Provider [phone] Encounter Details Date Type Department Care Team (Late st Contact Info) Description 04/24/2023 Community [facility] Community Practice [address] [place] [address] Alvarez Munoz MD [address] [place] [address] Social History Tobacco Use Types Packs/Day Years [...] on filedocumented in this encounter Care Teams Manager Payroll Relationship Specialty Start Date End Date Duran Jiménez MD [facility] [place] [address] PCP - General 06/24/20 documented as of this encounter
--- OUTSIDE RECORDS SUMMARY | 2024-08-27 07:25 | XMS_ITS ---
Author Organization Unknown Problems Date Problem Result OnSetDate [id number] SnomedCode Severity Cu stom 02/25/2024 00:00:00 Insomnia G47.00
--- OUTSIDE RECORDS SUMMARY | 2024-08-27 07:25 | XMS_ITS | Clinical Summary ---
Author Organization Healthcare Address [address] [id number] Care Team Providers Care Jalousies Installer Name Role Phone Duran Jiménez MD Primary Care Provider [phone] Social History Tobacco Use Types Packs/Day Years Used Date Smoking Tobacco: Never Assessed Sex and Gender Information Value Date Recorded Sex Assigned at Not on file Legal Sex Male 7:50 PM EDT Gender Identity Not on file Sexual Orientation Not on file Plan of Treatment Health Maintenance Due Date Last Done Comments [facility]-Depression Screening 1957 [facility]-Infant/Child/Adol SDOH Screenings 1957 [facility]- SDOH Screenings 11/04/1975 [facility]-Adult SDOH Screenings 11/04/1975 [facility]-DTaP,Tdap,and Td Vaccine s (1 - Tdap) 1976 CT Colonography 2002 Colonoscopy 2002 FIT-DNA 2002 FIT 2002 FOBT 2002 Sigmoidoscopy 2002 [facility]-Colorectal Cancer Screening 2002 [facility]-Pneumococcal Vaccine: 50 + Years (1 of 1 - PCV) 11/04/2007 [facility]-Zoster Vaccines (1 of 2) 11/04/2007 [id number] Vaccine (1 - 20 24-25 season) 2023 [facility]-Influenza Vaccine (#1) 2024 [facility]-RSV Vaccine: 60+ Years o r [...] on patient's age to complete this topic Care Teams Jalousies Installer Relationship Specialty Start Date End Date Duran Jiménez MD [address] [facility] [place] [address] PCP - General 06/24/20
[2024-08-27 07:53] LABS: Blood Urea Nitrogen 18 mg/dl (9-20); Creatinine,Serum 0.80 mg/dl (0.66-1.25); Estimated Glomerular Filt Rate 97 ml/min (>60); GFR (African American) 117 ML/MIN (>60)
--- NOTE | 2024-08-27 08:00 | CT_ITS ---
FINAL REPORT TECHNIQUE: Axial CT of the abdomen and pelvis, without and with IV contrast. This study was performed with techniques to keep radiation doses as low as reasonably achievable, (ALARA). Individualized dose reduction techniques using automated exposure control or adjustment of mA and/or kV according to the patient''s size were employed. CLINICAL HISTORY: Hemturia COMPARISON: Images dated 06/06/2017 and report dated 02/18/2021 FINDINGS: Abdomen: Lung bases are clear. There are a few punctate pancreatic calcifications which may be sequela of prior pancreatitis. There is fatty infiltration of the liver. The remaining solid organs are normal. Patient is status postcholecystectomy. There is a partial staghorn calculus lower pole left kidney which measures 20 x 19 mm without obstructive change. No right renal stone disease identified. The kidneys enhance normally without evidence of mass or obstruction. No bowel obstruction or fluid collection is seen. Pelvis: The appendix is normal. There is moderate sigmoid diverticulosis. There is mild prostate enlargement. Small bilateral inguinal hernias are seen containing fat. No fluid collection or adenopathy is seen. IMPRESSION: Enlarging partial staghorn calculus lower pole left kidney. No active obstruction. No acute findings. Reviewed, Interpreted and Dictated by Karina Martel MD Transcribed by Yasmeen Tesfaye Authenticated and . [facility]
[2024-08-27] MEDS: IOPAMIDOL-370 (76%);100ML BOTTLE 75 ML IV (08:13)
[2024-08-27] MEDS: SODIUM CHLORIDE 0.9% 10ML SYR (RAD ONLY) 10 ML IV (08:13)
--- NOTE | 2024-08-27 09:15 | US_ITS ---
FINAL REPORT TECHNIQUE: Bladder volumes were estimated based on 3 dimensional measurements, pre- and postvoid. CLINICAL HISTORY: Hematuria COMPARISON: None FINDINGS: ULTRASOUND BLADDER WITH POST VOID RESIDUAL Prevoid bladder volume: 224.7 mls. Postvoid bladder volume: 23.0 mls No obvious filling defect within the bladder lumen. IMPRESSION: Estimated bladder volumes as above. No obvious filling defect within the bladder lumen. Reviewed, Interpreted and Dictated by Karina Martel MD Transcribed by Michelle Skinner Authenticated and [facility]
[2024-08-28 08:19] LABS: PSA, Free 0.27 ng/mL
== END 2024-08-27 23:59 | disposition home or self-care (01) ==
PROVIDERS: PCP Nurse Practitioner; Visit Provider Urology
DX: N50.819 Testicular pain, unspecified (principal); N40.1 Benign prostatic hyperplasia with lower urinary tract symptoms; N52.9 Male erectile dysfunction, unspecified; R31.9 Hematuria, unspecified; N20.0 Calculus of kidney; K76.0 Fatty (change of) liver, not elsewhere classified; K57.30 Diverticulosis of large intestine without perforation or abscess without bleeding; K40.20 Bilateral inguinal hernia, without obstruction or gangrene, not specified as recurrent; K86.89 Other specified diseases of pancreas
CPT/HCPCS: 36415; 74178; 76857; 82565; 84153; 84154; 84520; Q9967

== ENCOUNTER 2024-09-22 08:52 | Outpatient (CLI) | payer MEDICARE, SELFPAY ==
--- NOTE | 2024-09-22 08:53 | XR_ITS ---
FINAL REPORT CLINICAL HISTORY: left hand pain COMPARISON: 06/10/2020 FINDINGS: AP, oblique, and lateral views of the left hand were obtained. There is no acute fracture of the left hand. 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 Multijoint degenerative change is present, progressed since the prior. The soft tissues are normal. IMPRESSION: No acute osseous abnormality of the left hand. 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 Reviewed, Interpreted and Dictated by Hortencia Noel MD Transcribed by Kandace Givens Authenticated and [facility]
--- NOTE | 2024-09-22 08:53 | XR_ITS ---
FINAL REPORT CLINICAL HISTORY: right hand pain COMPARISON: None FINDINGS: AP, lateral and oblique views of the right hand were obtained. There is no prior exam for comparison. There is no acute fracture or dislocation. There is a prominent enthesophyte projecting from the first metacarpal shaft. Multilevel joint disease is present, most pronounced at the DIP joints. The thumb soft tissues appear asymmetrically swollen when compared to the other soft tissues of the hand. There is a foreign body in the dorsal soft tissues measuring 4 mm in size at the level of the fourth metacarpal head. IMPRESSION: No acute osseous abnormality. Degenerative joint disease and soft tissue edema as described. Reviewed, Interpreted and Dictated by Hortencia Noel MD Transcribed by Kandace Givens Authenticated and [facility]
--- OUTSIDE RECORDS SUMMARY | 2024-09-22 08:55 | XMS_ITS | Encounter Summary ---
Author Organization Healthcare Address [address] [place] [address] Care Team Providers Care Beveller Operator Name Role Phone Duran Jiménez MD Primary Care Provider [phone] Encounter Details Date Type Department Care Team (Late st Contact Info) Description 08/27/2024 Orders Only External Location [address] [place] [id number] Provider, External Social History Tobacco Use Types Packs/Day Years Used Date Smoking Tobacco: Never Assessed Sex and Gender Information Value Date Recorded Sex Assigned at Not on file Legal Sex Male 7:50 PM EDT Gender Identity Not on file Sexual Orientation Not on file documented as of this encounter Plan of Treatment Upcoming Encounters Date Type Department Care Team (Late st Contact Info) Description 2024 1:00 PM EDT Consult Medical Office Building Urology [address] [facility], [address] [place] [address] Oni Burton MD [address] [facility] [address] [place] [address] documented as of this encounter Procedures Procedure Name Priority Date/Time Associated Diagnosis Comments US OUTSIDE IMAGES 08/27/2024 9:12 AM EDT documented in this encounter Results * US OUTSIDE IMAGES (08/27/2024 9:12 AM EDT) Anatomical Region Laterality Modality Ultrasound 08/27/2024 9:12 AM EDT us External Provider IMG US PROCEDURES Final Result documented in this encounter Visit Diagnoses Not on filedocumented in this encounter Care Teams Beveller Operator Relationship Specialty Start Date End Date Duran Jiménez MD [address] [place] [address] PCP - General 06/24/20 documented as of this encounter
--- OUTSIDE RECORDS SUMMARY | 2024-09-22 08:55 | XMS_ITS | Clinical Summary ---
Author Organization [facility] Address [address] [place] [address] Care Team Providers Care Security Sales Consultant Name Role Phone Luz Marina Finn APRN Primary Care Provider [phone] Allergies Active Allergy Reactions Criticality Noted Date Comments Codeine Other (See Comments) Low 04/30/2023 Makes me restless Medications Creon 38096-959820 units capsule delayed-release particles capsule Take 2 capsules by mouth 3 (Three) Times a Day With Meals. 03/10/19 24 Active NON FORMULARY Take 1 dose by mouth Daily. Active sennosides-docusa te (senna-docusate sodium) 8.6-50 MG per tablet Take 1 tablet by mouth Daily. Take while using hydrocodone to prevent constipation 30 tablet 06/06/19 24 Active naloxone (NARCAN) 4 MG/0.1ML nasal spray Call 911. Don't prime. Belden in 1 nostril for overdose. Repeat in 2-3 minutes in other nostril if no or minimal breathing/respon siveness. 2 each 06/06/19 24 Active gabapentin (NEURONTIN) 300 MG capsuleIndication s:Cervical radiculopathy Take 1 capsule by mouth 3 (Three) Times a Day. 90 capsule 06/21/19 24 Active diazePAM (VALIUM) 5 MG tabletIndications :Cervical radiculopathy Take 1 tablet by mouth Every 8 (Eight) Hours As Needed for Muscle Spasms. 20 tablet 06/21/19 24 Active Active Problems Problem Noted Date Diagnosed Date Cervical radiculopathy 05/14/2023 Family History Medical History Relation Name Comments Heart disease Father Eber Heart attack Cancer Mother Eileen Barragan Breast Depression Mother Eileen Barragan Arthritis Sister Laurel Arellano mother Relation Name Status Comments Father Eber Mother Laurel,Eileen Sister Laurel Arellano mother Social History Tobacco Use Types Packs/Day Years Used Date Smoking Tobacco: Former Cigarettes 1.5 31.6 1 - 07/08/2002 Passive Smoke Exposure: Current Smokeless Tobacco: Never Tobacco Cessation:Counseling Given: Not Answered Alcohol Use Standard Drinks/Week Comments Not Currently 0 (1 standard drink = 0.6 oz pur e alcohol) Occasionally AUDIT-C Answer Date Recorded Q1: How often do you have a drink containing alcohol? Never 06/05/2023 Q2: How many drinks containi ng alcohol do you have on a typical day when you are drinking? Patient does not drink Q3: How often do you have si x or more drinks on one occasion? Never 06/05/2023 Abuse Screen Answer Date Recorded Feels Unsafe at Home or Work/School no 06/05/2023 Feels Threatened by Someone no 05/13 Does Anyone Try to Keep You From Having Contact with Others or Doing Things Outside Your Home? no 06/05/2023 Physical Signs of Abuse Present no 06/05/2023 Housing Stability Answer Date Recorded Current Living Arrangements home 05/13 Potentially Unsafe Housing Conditions Not on sandra e 06/06/2023 Family and Community Support Answer Parish e Recorded Help with Day-to-Day Activities Not on file 11/19/2022 Lonely or Isolated Not on file 11/19/2022 Employment Answer Date Recorded Do you want help finding or keeping work or a cesar b? Not on file 11/19/2022 Disabilities Answer Date Recorded Difficulty Concentrating, Remembering or Making Decisions no 06/05/2023 Difficulty Managing Errands Independently no 06/05/2023 Education Answer Date Recorded Help with school or training? Not on file Preferred Language Danish 05/29/2023 Sex and Gender Information Value Date Recorded Sex Assigned at Not on file Legal Sex Male 12:22 PM EDT Gender Identity Not on file Sexual Orientation Not on file Last Filed Vital Signs Vital Sign Reading Time Taken Comments Blood Pressure 119/75 06/06/2023 10:45 AM EDT Pulse 75 06/06/2023 10:45 AM EDT Temperature 36.3 C (97.3 F) 08/02/2023 9:12 AM EDT Respiratory Rate 18 06/06/2023 10:45 AM EDT Oxygen Saturation 90% 06/06/2023 10:45 AM EDT Inhaled Oxygen Concentration - - Weight 99.8 kg (220 lb) 08/02/2023 9:12 AM EDT Height 177.8 cm (5' 10 ) 08/02/2023 9:12 AM EDT Body Mass Index 31.57 08/02/2023 9:12 AM EDT Plan of Treatment Health Maintenance Due Date Last Done Comments TDAP/TD VACCINES (1 - Tdap) 1976 COLOGUARD 2002 COLON CANCER SCREENING 5 YEAR SIGMOIDOSCOPY 2002 COLONOSCOPY 2002 [address] CANCER SCREENING 2002 CT COLONOGRAPHY 2002 FECAL OCCULT BLOOD TEST 2002 FIT Testing (1 year) 2002 Pneumococcal Vaccine 50+ (1 of 1 - PCV) 11/04/2007 ZOSTER VACCINE (1 of 2) 11/04/2007 ANNUAL WELLNESS VISIT 04/30/2023 HEPATITIS C SCREENING 04/30/2023 COVID-19 Vaccine (1 - season) 2023 INFLUENZA VACCINE 11/11/2024 AAA SCREEN ONCE Completed 10/09/2016 Medical Devices Implanted Type Area Pmo Manager Device Identifier Shelf Expiration Date Model / Serial / Lot Kt Seal Hemos Abs Floseal Matrx Fast/Prep 10ml - [id number] Implanted:Qty : 2 on 06/05/2023 by Vimal Pardo MD at [facility] Implant N/A: Spine Cervical [employer] [id number] / / Putty Dbm Phil 6cc - [id number] - [id number] Implanted:Qty : 1 on 06/05/2023 by Vimal Pardo MD at [facility] Implant N/A: Spine Cervical [employer] 04/25/2025 [id number] / [id number] / Cage Cerv Anatomic Ptc [id number] - [id number] Implanted:Qty : 1 on 06/05/2023 by Vimal Pardo MD at [facility] Implant N/A: Spine Cervical [employer] 01/22/2031 [id number] / / [id number] Cage Cerv Anatomic Ptc [id number] - [id number] Implanted:Qty : 1 on 06/05/2023 by Vimal Pardo MD at [facility] Implant N/A: Spine Cervical [employer] 12/01/2028 [id number] / / 54LV Plt Acp [place] Vsn Elt 2lvl 40mm Ns - [id number] Implanted:Qty : 1 on 06/05/2023 by Vimal Pardo MD at [facility] Implant N/A: Spine Cervical [employer] [id number] / / Scrw [place] Vsn Elite Va Sd 4x16 Grn - [id number] Implanted:Qty : 5 on 06/05/2023 by Vimal Pardo MD at [facility] Implant N/A: Spine Cervical [employer] [id number] / / Scrw [place] Vsn Elite Va Sd 4.5x17 - [id number] Implanted:Qty : 1 on 06/05/2023 by Vimal Pardo MD at [facility] Implant N/A: Spine Cervical [employer] [id number] / / Explanted Type Area Pmo Manager Device Identifier Shelf Expiration Date Model / Serial / Lot Scrw [place] Vsn Elite Va Sd 4x16 Grn - [id number] Explanted:Qty : 1 on 06/05/2023 at [facility] Implant N/A: Spine Cervical [employer] [id number] / / Insurance MEDICARE ADVANTAGE PPO Advance Directives * CPR (Attempt to Resuscitate) (Latest Code Status on File) Date Activated Date Inactivated Comments 06/05/2023 5:32 PM 06/06/2023 4:13 PM Question Answer Comments Code Status (Patient has no pulse and is not breathing): CPR (Attempt to Resuscitate) Medical Interventions (Patie nt has pulse or is breathing): Full Support Care Teams Security Sales Consultant Relationship Specialty Start Date End Date Luz Marina Finn APRN [address] [place] [address] PCP - General Nurse Practitioner 04/29/23
--- OUTSIDE RECORDS SUMMARY | 2024-09-22 08:55 | XMS_ITS | Encounter Summary ---
Author Organization Healthcare Address [address] [place] [address] Care Team Providers Care Tentering Machine Feeder Name Role Phone Duran Jiménez MD Primary Care Provider [phone] Encounter Details Date Type Department Care Team (Late Contact Info) Description 08/27/2024 Orders Only External Location [address] [place] [id number] Provider, External Social History Tobacco Use Types [...] Consult Medical Office Building Urology [address] [facility], [address] [place] [address] Oni Burton MD [address] [facility] [address] [place] [address] documented as of this encounter Procedures Procedure Name Priority Date/Time Associated Diagnosis Comments CT MSK OUTSIDE IMAGES 08/27/2024 8:01 AM EDT documented in this encounter Results * CT MSK OUTSIDE IMAGES (08/27/2024 8:01 AM EDT) Anatomical Region Laterality Modality Computed Tomogra phy 08/27/2024 8:01 AM EDT us External Provider IMG CT PROCEDURES Final Result documented in this encounter Visit Diagnoses Not on filedocumented in this encounter Care Teams Tentering Machine Feeder Relationship Specialty Start Date End Date Duran Jiménez MD [address] [place] [address] PCP - General 06/24/20 documented as of this encounter
--- OUTSIDE RECORDS SUMMARY | 2024-09-22 08:55 | XMS_ITS | Clinical Summary ---
Author Organization Healthcare Address [address] [place] [address] Care Team Providers Care Cork Insulation Setter Name Role Phone Druan Jiménez MD Primary Care Provider [phone] Encounters Date Type Department Care Team Description 09/11/2024 Telephone [place] [facility] [address] [place] [address] Myra Rojas 08/27/2024 Orders Only External Location [address] [place] [address] Provider, External 08/27/2024 Orders Only External Location [address] [place] [address] Provider, External from Last 3 Months Social History Tobacco Use Types Packs/Day Years Used Date Smoking Tobacco: Never Assessed Sex and Gender Information Value Date Recorded Sex Assigned at Not on file Legal Sex Male 7:50 PM EDT Gender Identity Not on file Sexual Orientation Not on file Plan of Treatment Upcoming Encounters Date Type Department Care Team (Late st Contact Info) Description 2024 1:00 PM EDT Consult Medical Office Building Urology [address] [facility], [address] [place] [address] Oni Burton MD [address] [place] [address] Health Maintenance Due Date Last Done Comments [facility]-Depression Screening 1957 [facility]-Hepatitis C Screening 1957 [facility]-Medicare Annual Wellness (AWV) 1955 [facility]-Infant/Child/Adol SDOH Screenings 1955 [facility]- SDOH Screenings 11/04/1975 [facility]-Adult SDOH Screenings 11/04/1975 [facility]-DTaP,Tdap,and Td Vaccine s (1 - Tdap) 1976 CT Colonography 2002 Colonoscopy 2002 FIT-DNA 2002 FIT 2002 FOBT 2002 Sigmoidoscopy 2002 [facility]-Colorectal Cancer Screening 2002 [facility]-Pneumococcal Vaccine: 50 + Years (1 of 1 - PCV) 11/04/2007 [facility]-Zoster Vaccines (1 of 2) 11/04/2007 [id number] Vaccine (1 - 20 24-25 season) 2023 [...] US OUTSIDE IMAGES 08/27/2024 9:[address] MSK OUTSIDE IMAGES 08/27/2024 8:01 AM EDT from Last 3 Months Results * US OUTSIDE IMAGES (08/27/2024 9:12 AM EDT) Anatomical Region Laterality Modality Ultrasound 08/27/2024 9:12 AM EDT us External Provider IMG US PROCEDURES Final Result * CT MSK OUTSIDE IMAGES (08/27/2024 8:01 AM EDT) Anatomical Region Laterality Modality Computed Tomogra phy 08/27/2024 8:01 AM EDT us External Provider IMG CT PROCEDURES Final Result from Last 3 Months Insurance [employer] MEDICARE Care Teams Cork Insulation Setter Relationship Specialty Start Date End Date Duran Jiménez MD [address] [place] [address] PCP - General 06/24/20
--- OUTSIDE RECORDS SUMMARY | 2024-09-22 08:55 | XMS_ITS | Encounter Summary ---
Author Organization Healthcare Address [address] [place] [address] Care Team Providers Care Cognos Developer Name Role Phone Duran Jiménez MD Primary Care Provider Encounter Details Date Type Department Care Team (Late st Contact Info) Description 04/24/2023 Community [facility] [address] [place] [address] Alvarez Munoz MD [address] [place] [address] Social History Tobacco Use Types Packs/Day Years [...] Consult Medical Office Building Urology [address] [facility], [address] [place] [address] Oni Burton MD [address] [facility] [address] [place] [address] documented as of this encounter Visit Diagnoses Not on filedocumented in this encounter Care Teams Cognos Developer Relationship Specialty Start Date End Date Duran Jiménez MD [address] [place] [address] PCP - General 06/24/20 documented as of this encounter
--- OUTSIDE RECORDS SUMMARY | 2024-09-22 08:55 | XMS_ITS | Encounter Summary ---
Author Organization [facility] Address [address] [place] [address] Care Team Providers Care Farm Appraiser Name Role Phone Duran Jiménez MD Primary Care Provider [phone] Encounter Details Date Type Department Care Team ([facility] Contact Info) Description 09/11/2024 Telephone [place] [facility] [address] [place] [address] [place] [address] Social History Tobacco Use Types Packs/Day Years Used Date Smoking Tobacco: Never Assessed Sex and Gender Information Value Date Recorded Sex Assigned at Not on file Legal Sex Male 7:50 PM EDT Gender Identity Not on file Sexual Orientation Not on file documented as of this encounter Miscellaneous Notes * Telephone Encounter - Myra Rojas - 09/11/2024 12:56 PM EDT Patient is on urology referral triage, called patient to schedule appointment, no answer, left a detailed message to return my call. Myra Rojas RN documented in this encounter Plan of Treatment Upcoming Encounters Date Type Department Care Team (Late Contact Info) Description 2024 1:00 PM EDT Consult Medical Office Building Urology [address] [facility], [address] [place] [address] Oni Burton MD [address] [facility] [address] [place] [address] documented as of this encounter Visit Diagnoses Not on filedocumented in this encounter Care Teams Farm Appraiser Relationship Specialty Start Date End Date Duran Jiménez MD [address] [place] [address] [place] [address] PCP - General 06/24/20 documented as of this encounter
== END 2024-09-22 23:59 | disposition home or self-care (01) ==
LOC: RAD 08:53
PROVIDERS: Visit Provider Physician Assistant
DX: M19.042 Primary osteoarthritis, left hand (principal); M19.041 Primary osteoarthritis, right hand; Z89.022 Acquired absence of left finger(s)
CPT/HCPCS: 73130

== ENCOUNTER 2024-10-01 10:51 | Day surgery (SDC) | payer MEDICARE, SELFPAY ==
[2024-09-29 11:21] VITALS: BMI 30.4
--- NOTE | 2024-09-30 16:46 | P.HP_ITS ---
History of Present Illness *Admission Date: 10/01/24 *Reason for visit:: Calderón's esophagus *History of present illness: Mr. Guzman is a 68-year-old gentleman who is here for surveillance upper endoscopy secondary to a personal history of Calderón's esophagus discovered at time of ERCP in 2018. He has had no follow-up surveillance since then. The examination is deemed medically necessary for surveillance upper endoscopy. The patient has been seen, interviewed and examined prior to the procedure by both myself and the anesthesia provider. [facility] Disclaimer: The information contained in this section may have been updated after the patient was seen, as this information can be updated by other users. Medical History (Updated 09/29/24 @ 11:16 by Josefina Jones RN) Fusion of spine, cervical region Kidney stone Pancreatitis Hypertension Abnormal electrocardiogram [ECG] [EKG] Sinus tachycardia Surgical History History of facial surgery History of skin graft History of knee replacement History of arthroplasty of right shoulder History of cholecystectomy Family History Mother Cancer Father Heart attack Hypertension Sister Heart murmur Social History (Updated 09/29/24 @ 11:17 by Josefina Jones RN) Smoking Status: Former smoker alcohol intake: current alcohol intake frequency: holidays/special occasions only substance use type: denies use current occupational status: retired and disabled Travel in the last 8 weeks?: None household members: spouse housing: house caffeine: Yes Have you lived/traveled outside US in past 30 days?: No Contact w/someone who lives/traveled outside US past 30 days?: No Exposure to someone with infectious disease in past 14 days?: No Do you have a fever (greater than 100.4 F or 38 C)?: No Have you tested positive for COVID-19?: No Exposed to someone with COVID-19 in past 14 days?: No Do you have a sore throat?: No Do you have a cough?: No Do you have any weakness?: No Do you have any diarrhea?: No Are you experiencing any unusual bleeding?: No Do you have any muscle aches/pain?: No Do you have any abdominal pain?: No Are you experiencing loss of taste or smell?: No Other Medical History Have you received the Flu Vaccine for this season: No Have you received the Pneumonia Vaccine: No Review of Systems Review of Systems Review of systems (narrative): Negative *Cardiovascular Comments: Negative *Gastrointestinal Comments: Negative *Genitourinary Comments: Negative *Musculoskeletal Comments: Negative *Neurologic Comments: Negative Meds Home Medications and Allergies Home Medications ?Medication ?Instructions ?Recorded ?Confirmed ?Type szbcshh-htwwckqlwezyv-fzkgxiha 250 1 tab PO Q4-6H PRN Mild Pain 07/21/24 09/29/24 History mg-250 mg-65 mg tablet (Excedrin (Scale Score 1-4) Migraine) jpagqt-epzfrnpt-ltxonqx 2 cap PO TID #240 caps 07/2109/29/24 Rx 36,000-114,000-180,000 unit capsule,delay rel (Creon) tadalafil 5 mg tablet (Cialis) 5 mg PO DAILY #30 tabs 09/21/24 09/29/24 Rx tamsulosin 0.4 mg capsule (Flomax) 0.4 mg PO DAILY 90 days #90 caps 09/21/24 09/29/24 Rx omeprazole 20 mg capsule,delayed 20 mg PO DAILY 09/29/24 History release New Prescriptions to Start Prescriptions: Allergies Allergy/AdvReac Type Severity Reaction Status Date / Time codeine Allergy Unknown HYPER Verified 09/29/24 11:17 Exam Data for Last 24 hours I & O for Last 24 hours: Intake & Output 09/27/24 09/28/24 09/29/24 09/30/24 23:59 23:59 23:59 23:59 Weight 212 lb *Routine HEENT Exam Head: Present normocephalic Eye: Present EOMI and PERRL ENT: Present mucous membranes moist *Routine Neck Exam Neck: Present supple *Routine Respiratory Exam Respiratory: Present CTA bilaterally *Routine Cardiovascular Exam Cardiovascular: Present RRR *Routine Abdominal Exam Abdominal: Present soft and normoactive bowel sounds; Absent tenderness *Routine Rectal Exam Rectal:: deferred *Routine Genitalia Exam Genitalia:: deferred *Routine Extremities Exam Extremities: Absent cyanosis, clubbing or edema *Routine Skin Exam Skin: Present warm; Absent rash *Routine Neurological Exam Neurological: Present alert and oriented X3 Assessment and Plan *Assessment and plan (1) Barretts esophagus: Status: Acute Category: Medical Code(s): K22.70 - Calderón's esophagus without dysplasia Plan A/P: 1. Calderón's esophagus is the preprocedural diagnosis. The patient will be anesthetized/sedated using MAC sedation. The patient has been seen and examined. Cardiac and lung assessment prior to the examination is stable. Proceed with planned surveillance upper endoscopy.
[2024-10-01 11:16] VITALS: BP 132/75; PULSE 57; RESP 18; TEMP 36.5; O2SAT 96
[2024-10-01] MEDS: LACTATED RINGERS 1000ML 1,000 ML 50 ML IV (11:21)
--- NOTE | 2024-10-01 11:34 | EXP.ANES.CKL ---
[facility] Disclaimer: The information contained in this section may have been updated after the patient was seen, as this information can be updated by other users. Medical History (Updated 09/29/24 @ 11:16 by Josefina Jones RN) Fusion of spine, cervical region Kidney stone Pancreatitis Hypertension Abnormal electrocardiogram [ECG] [EKG] Sinus tachycardia Surgical History History of facial surgery History of skin graft History of knee replacement History of arthroplasty of right shoulder History of cholecystectomy Family History Mother Cancer Father Heart attack Hypertension Sister Heart murmur Social History (Updated 09/29/24 @ 11:17 by Josefina Jones RN) Smoking Status: Former smoker alcohol intake: current alcohol intake frequency: holidays/special occasions only substance use type: denies use current occupational status: retired and disabled Travel in the last 8 weeks?: None household members: spouse housing: house caffeine: Yes Have you lived/traveled outside US in past 30 days?: No Contact w/someone who lives/traveled outside US past 30 days?: No Exposure to someone with infectious disease in past 14 days?: No Do you have a fever (greater than 100.4 F or 38 C)?: No Have you tested positive for COVID-19?: No Exposed to someone with COVID-19 in past 14 days?: No Do you have a sore throat?: No Do you have a cough?: No Do you have any weakness?: No Do you have any diarrhea?: No Are you experiencing any unusual bleeding?: No Do you have any muscle aches/pain?: No Do you have any abdominal pain?: No Are you experiencing loss of taste or smell?: No [facility] Anesthesia Checklist Patient Identification Patient Identification: Arm Band and Verbal (Name & ) Structural Data Admitted From: Home Planned Operative Procedure/s: colonoscopy Consent for Planned Operative Procedure(s) Verified: Yes Verified Documents: Surgical Consent NPO Status Verified Time NPO: 00:00 Chart Verification Results Verified: ECG Additional verifications Anesthesia Reactions: No Hx Blood Transfusions: No Blood Transfusion Reaction: No Airway Assessment Mallampati Score:: Class II C-Spine Mobility Assessed: Yes TMJ Mobility Assessed: Yes Dentition: Poor Dentition (Missing teeth) Neurological Assessment Level of Consciousness: Awake, Alert and Appropriate Hx Seizures: No Numbness or tingling in extremities: Yes (thumb and index finger of left hand) Anesthesia Plan Anesthesia Risk discussed: Yes Anesthesia Plan: Verified ASA Class: II Anesthesia Type: MAC
--- NOTE | 2024-10-01 12:02 | HMH.PROCNOTE ---
[facility] Procedure Note Date: 10/01/24 Time: 12:11 Procedure Note:: Upper Endoscopy Procedure Report: Esophagogastroduodenoscopy with cold biopsies Endoscopost: Rasta Dewitt II, MD Referring Physician: Luz Marina JIANG Date of Procedure: October 01, 2024 Equipment: Olympus GIF-1100 standard upper endoscope Sedation: MAC sedation Indications: Mr. Guzman is a 68-year-old gentleman who is here for surveillance upper endoscopy secondary to a personal history of Calderón's esophagus discovered at time of ERCP in 2018. He has had no follow-up surveillance since then. The patient is on omeprazole 20 mg by mouth daily. He reports no heartburn, reflux, dysphagia or dyspepsia. He has no abdominal complaints. Procedure: Prior to the procedure, a history and physical exam was performed, and patient's medications and allergies were reviewed. The risks, benefits and alternatives of the sedation and procedure were discussed with the patient. All questions were answered and informed consent was obtained. The patient was brought to the procedure room. Patient identification and proposed procedure were verified by the physician and the nurse. The patient was placed in a left lateral decubitus position and the scope was passed under direct vision. Throughout the procedure, the patient's blood pressure, pulse, and oxygen saturations were monitored continuously. The upper GI endoscopy was accomplished without difficulty. The patient tolerated the procedure well. Findings: The scope was passed directly into the upper esophagus and advanced to the third portion of the duodenum. The post bulbar duodenum and duodenal bulb were normal with normal mucosa and conniventes. The scope was withdrawn through a normal duodenal bulb and pylorus into the stomach. The antrum body and fundus of the stomach were grossly normal. Upon retroflexion there was a 2 to 3 cm hiatal hernia. The scope was then withdrawn into the esophagus. There was short segment Calderón's esophagus ([place] classification C2M3). Directed cold biopsies were taken using NBI (narrowband imaging) and there was no NBI evidence of dysplasia. There is no evidence of reflux esophagitis and the remainder of the esophageal mucosa was normal. Impression: 1. Short segment Calderón's esophagus ([place] classification C2M3) Plan: I will follow-up the biopsies and recommend repeat surveillance EGD again in 5 years. I would continue omeprazole as maintenance therapy.
[2024-10-01 12:11] VITALS: BP 91/65; PULSE 67; RESP 18; TEMP 36.3; O2SAT 92
[2024-10-01 12:21] VITALS: BP 101/71; PULSE 57; RESP 16; O2SAT 94
[2024-10-01 12:31] VITALS: BP 113/74; PULSE 53; RESP 16; O2SAT 96
[2024-10-01 12:41] VITALS: BP 107/74; PULSE 58; RESP 16; O2SAT 98
== END 2024-10-01 12:41 | disposition home or self-care (01) ==
PROVIDERS: PCP Nurse Practitioner; Visit Provider Internal Medicine Gastroenterology
PROC: 0DJ08ZZ Inspection of Upper Intestinal Tract, Via Natural or Artificial Opening Endoscopic (ICD-10-PCS; CPT 43239; principal; 2024-10-01 12:30)
DX: K22.70 Barrett's esophagus without dysplasia (principal); I10 Essential (primary) hypertension; Z87.891 Personal history of nicotine dependence; Z79.899 Other long term (current) drug therapy; Z79.82 Long term (current) use of aspirin
CPT/HCPCS: 43239; J2003; J2704; J7120

== ENCOUNTER 2024-10-08 09:21 | Outpatient (CLI) | payer MEDICARE, SELFPAY ==
--- OUTSIDE RECORDS SUMMARY | 2024-10-08 09:23 | XMS_ITS | Encounter Summary ---
Author Organization Healthcare Address [address] [place] [address] Care Team Providers Care Hoist Operator Name Role Phone Duran Jiménez MD Primary Care Provider [phone] Encounter Details Date Type Department Care Team (Late st Contact Info) Description 08/27/2024 Orders Only External Location [address] [place] [id number] Provider, External Social History Tobacco Use Types [...] Consult Medical Office Building Urology [address] [facility], [address] [place] [address] Oni Burton MD [address] [facility] [address] [place] [address] documented as of this encounter [...] on filedocumented in this encounter Care Teams Hoist Operator Relationship Specialty Start Date End Date Duran Jiménez MD [address] [place] [address] PCP - General 06/24/20 documented as of this encounter
--- OUTSIDE RECORDS SUMMARY | 2024-10-08 09:24 | XMS_ITS | Encounter Summary ---
Author Organization Healthcare Address [address] [place] [address] Care Team Providers Care Plant Operator/Shift Supervisor Name Role Phone Duran Jiménez MD Primary Care Provider Encounter Details Date Type Department Care Team (Late st Contact Info) Description 04/24/2023 Community [facility] Community Practice [address] [place] [address] Alvarez Munoz MD [address] [place] [address] Social History Tobacco Use Types [...] Consult Medical Office Building Urology [address] [facility], [address] [place] [address] Oni Burton MD [address] [facility] [address] [place] [address] documented as of this encounter Visit Diagnoses Not on filedocumented in this encounter Care Teams Plant Operator/Shift Supervisor Relationship Specialty Start Date End Date Duran Jiménez MD [address] [place] [address] PCP - General 06/24/20 documented as of this encounter
--- OUTSIDE RECORDS SUMMARY | 2024-10-08 09:24 | XMS_ITS | Encounter Summary ---
Author Organization [facility] Address [address] [place] [address] Care Team Providers Care Torch Burner Name Role Phone Duran Jiménez MD Primary Care Provider [phone] Encounter Details Date Type Department Care Team (Late Contact Info) Description 08/27/2024 Orders Only External Location [address] [place] [id number] Provider, External Social History Tobacco Use Types [...] [facility], [address] [place] [address] Oni Burton MD [address] [facility] [address] [place] [address] documented as of this encounter [...] on filedocumented in this encounter Care Teams Torch Burner Relationship Specialty Start Date End Date Duran Jiménez MD [address] [place] [address] PCP - General 06/24/20 documented as of this encounter
--- OUTSIDE RECORDS SUMMARY | 2024-10-08 09:24 | XMS_ITS | Clinical Summary ---
Author Organization Healthcare Address [address] [place] [address] Care Team Providers Care Property Claims Manager Name Role Phone Duran Jiménez MD Primary Care Provider [phone] Encounters Date Type Department Care Team Description 09/11/2024 Telephone [facility] [address] [place] [address] Myra Rojas 08/27/2024 Orders Only External Location [address] [place] [address] Provider, External 08/27/2024 Orders Only External Location [address] [place] [address] Provider, External from Last 3 [...] Consult Medical Office Building Urology [address] [facility], [address] [place] [address] Oni Burton MD [address] [place] [address] Health Maintenance Due Date Last [...] 11/04/2007 [facility]-Zoster Vaccines (1 of 2) 11/04/2007 [id number] Vaccine (1 - 20 24-25 season) 2023 [...] 3 Months Insurance [employer] MEDICARE Care Teams Property Claims Manager Relationship Specialty Start Date End Date Duran Jiménez MD [address] [place] [address] PCP - General 06/24/20
--- OUTSIDE RECORDS SUMMARY | 2024-10-08 09:24 | XMS_ITS | Clinical Summary ---
Author Organization [facility] Address [address] [place] [address] Care Team Providers Care Screen Handler Name Role Phone Luz Marina Finn APRN Primary Care Provider [phone] Allergies Active Allergy Reactions Criticality Noted Date Comments Codeine Other (See Comments) Low 04/30/2023 Makes me restless Medications Creon 68100-805836 units capsule delayed-release particles capsule Take 2 [...] MG/0.1ML nasal spray Call 911. Don't prime. [place] in 1 nostril for overdose. Repeat in [...] or training? Not on file Preferred Language Taiwanese 05/29/2023 Sex and Gender Information Value Date [...] Completed 10/09/2016 Medical Devices Implanted Type Area Rail Loader Device Identifier Shelf Expiration Date Model / Serial / Lot Kt Seal Hemos Abs Floseal Matrx Fast/Prep 10ml - [id number] Implanted:Qty : 2 on 06/05/2023 by Vimal Pardo MD at [facility] Implant N/A: Spine Cervical [employer] [id number] / / Putty Dbm Phil 6cc - [id number] - [id number] Implanted:Qty : 1 on 06/05/2023 by Vimal Pardo MD at [facility] Implant N/A: Spine Cervical [employer] 04/25/2025 [id number] / [id number] / Cage Cerv Anatomic Ptc [id number] - [id number] Implanted:Qty : 1 on 06/05/2023 by Vimal Pardo MD at [facility] Implant N/A: Spine Cervical [employer] 01/22/2031 [id number] / / [id number] Cage Cerv Anatomic Ptc [id number] - [id number] Implanted:Qty : 1 on 06/05/2023 by Vimal Pardo MD at [facility] Implant N/A: Spine Cervical [employer] 12/01/2028 [id number] / / 54LV Plt Acp [place] Vsn Elt 2lvl 40mm Ns - [id number] Implanted:Qty : 1 on 06/05/2023 by Vimal Pardo MD at [facility] Implant N/A: Spine Cervical [employer] [id number] / / Scrw [place] Vsn Elite Va Sd 4x16 Grn - [id number] Implanted:Qty : 5 on 06/05/2023 by Vimal Pardo MD at [facility] Implant N/A: Spine Cervical [employer] [id number] / / Scrw [place] Vsn Elite Va Sd 4.5x17 - [id number] Implanted:Qty : 1 on 06/05/2023 by Vimal Pardo MD at [facility] Implant N/A: Spine Cervical [employer] [id number] / / Explanted Type Area Rail Loader Device Identifier Shelf Expiration Date Model / Serial / Lot Scrw [place] Vsn Elite Va Sd 4x16 Grn - [id number] Explanted:Qty : 1 on 06/05/2023 at [facility] Implant N/A: Spine Cervical [employer] [id number] / / Insurance MEDICARE ADVANTAGE PPO Advance Directives * CPR (Attempt to Resuscitate) (Latest Code Status on File) Date Activated Date Inactivated Comments 06/05/2023 5:32 PM 06/06/2023 4:13 PM Question Answer Comments Code Status (Patient has no pulse and is not breathing): CPR (Attempt to Resuscitate) Medical Interventions (Patie nt has pulse or is breathing): Full Support Care Teams Screen Handler Relationship Specialty Start Date End Date Luz Marina Finn APRN [address] [place] [address] PCP - General Nurse Practitioner 04/29/23
--- OUTSIDE RECORDS SUMMARY | 2024-10-08 09:24 | XMS_ITS | Encounter Summary ---
Author Organization [facility] Address [address] [place] [address] Care Team Providers Care Advance Scout Name Role Phone Duran Jiménez MD Primary Care Provider [phone] Encounter Details Date Type Department Care Team ([facility] Contact Info) Description 09/11/2024 Telephone [place] [facility] Urology [address], [address] [place] [address] [place] [address] Social History Tobacco Use Types Packs/Day Years [...] Consult Medical Office Building Urology [address] [facility], [address] [place] [address] Oni Burton MD [address] [facility] [address] [place] [address] documented as of this encounter Visit Diagnoses Not on filedocumented in this encounter Care Teams Advance Scout Relationship Specialty Start Date End Date Duran Jiménez MD [address] [place] [address] [place] [address] PCP - General 06/24/20 documented as of this encounter
[2024-10-08 10:15] LABS: Albumin Level 4.5 g/dl (3.5-5.0); Chloride 105 mmol/L (98-107)
[2024-10-08 10:16] LABS: Potassium 4.2 mmoL/L (3.5-5.1); Sodium 135 mmol/L (136-145)
[2024-10-08 10:18] LABS: Alanine Aminotransferase 22 U/L (12-78); Anion Gap 10.2 mEq/L (5-15); Bilirubin,Unconjugated 0.6 mg/dL (0.0-1.1); Blood Urea Nitrogen 13 mg/dl (9-20); Carbon Dioxide 24 mmol/L (22.0-30.0); Creatinine,Serum 0.80 mg/dl (0.66-1.25); Estimated Glomerular Filt Rate 97 ml/min (>60); GFR (African American) 117 ML/MIN (>60); Total Protein,Serum 6.9 g/dl (6.3-8.2)
[2024-10-08 10:19] LABS: Alkaline Phosphatase 46 U/L (38-126); Aspartate Amino Transferase 27 U/L (17-59); Bilirubin,Direct 0.2 mg/dl (0.0-0.4); Bilirubin,Indirect 0.6 mg/dL (0.0-0.9); Bilirubin,Total 0.8 mg/dl (0.2-1.3); Calcium 9.4 mg/dl (8.4-10.2); Cholesterol 176 mg/dl (140-200); Glucose 162 mg/dl (74-100); HDL Cholesterol 51 mg/dl (40-60); Triglycerides 94 mg/dl (30-150)
[2024-10-09 09:47] LABS: Hemoglobin A1C 7.2 % (4.0-6.0)
== END 2024-10-08 23:59 | disposition home or self-care (01) ==
LOC: LAB 09:22
PROVIDERS: PCP Nurse Practitioner; Visit Provider Physician Assistant
DX: I10 Essential (primary) hypertension (principal)
CPT/HCPCS: 36415; 80048; 80061; 80076; 83036

== ENCOUNTER 2024-10-21 06:10 | Outpatient (CLI) | payer MEDICARE, SELFPAY ==
--- NOTE | 2024-10-21 | CA_ITS ---
APPROVED REPORT Exam: Exercise Treadmill Technologist: Argenis Lockhart Stress Nurse: Violet Henry Ht: 5 ft 10 in Wt: 216 lbs BSA: 2.16 m2 HR: 62 bpm BP: 125/87 mmHg Stress Test Details Test: Exercise stress testing was performed using a Rhett protocol. HR Resting HR: 62 bpm Max Heart Rate (APMHR): 154.098955 bpm Max HR Achieved: 143 bpm Target HR (85% APMHR): 130.163554 bpm % of APMHR: 92.86 Recovery HR: 82 bpm BP Resting BP: 125.0/87.0 mmHg Max BP: 174.0/82.0 mmHg Recovery BP: 130.0/82.0 mmHg ECG Resting ECG: Sinus rhythm Stress ECG Conclusion Lungs CTA Symptoms: None Arrhythmias/Ectopy: PAC/PVC ST-T Changes: Less than 0.[address] segment changes. Conclusion: Kelley treadmill score +8. Electronically signed by : Sylwia Spaulding MD 10/21/2024 11:47:18
--- OUTSIDE RECORDS SUMMARY | 2024-10-21 06:12 | XMS_ITS | Encounter Summary ---
Author Organization Healthcare Address [address] [place] [address] Care Team Providers Care Medical Supervisor Name Role Phone Duran Jiménez MD Primary Care Provider [phone] Encounter Details Date Type Department Care Team (Late st Contact Info) Description 08/27/2024 Orders Only External Location [address] [place] [id number] Provider, External Social History Tobacco Use Types [...] Consult Medical Office Building Urology [address] [facility], [address] [place] [address] Oni Burton MD [address] [facility] [address] [place] [address] documented as of this encounter [...] on filedocumented in this encounter Care Teams Medical Supervisor Relationship Specialty Start Date End Date Duran Jiménez MD [address] [place] [address] PCP - General 06/24/20 documented as of this encounter
--- OUTSIDE RECORDS SUMMARY | 2024-10-21 06:12 | XMS_ITS | Clinical Summary ---
Author Organization [facility] Address [address] [place] [address] Care Team Providers Care President & Ceo [employer] Name Role Phone Luz Marina Finn APRN Primary Care Provider [phone] Allergies Active Allergy Reactions Criticality Noted Date Comments Codeine Other (See Comments) Low 04/30/2023 Makes me restless Medications Creon 90285-377451 units capsule delayed-release particles capsule Take 2 [...] MG/0.1ML nasal spray Call 911. Don't prime. [place] in 1 nostril for overdose. Repeat in [...] or training? Not on file Preferred Language [place] Islander 05/29/2023 Sex and Gender Information Value Date [...] SCREENING 04/30/2023 COVID-19 Vaccine (1 - season) 2024 INFLUENZA VACCINE 11/11/2024 AAA SCREEN ONCE Completed 10/09/2016 Medical Devices Implanted Type Area Train Attendant Device Identifier Shelf Expiration Date Model / Serial / Lot Kt Seal Hemos Abs Floseal Matrx Fast/Prep 10ml - [id number] Implanted:Qty : 2 on 06/05/2023 by Vimal Pardo MD at [facility] Implant N/A: Spine Cervical [employer] [id number] / / Putty Dbm [place] 6cc - [id number] - [id number] Implanted:Qty : 1 on 06/05/2023 by Vimal Pardo MD at [facility] Implant N/A: Spine Cervical [employer] 04/25/2025 [id number] / [id number] / Cage Cerv Anatomic Ptc [id number] - [id number] Implanted:Qty : 1 on 06/05/2023 by Vimal Pardo MD at [facility] Implant N/A: Spine Cervical [employer] 01/22/2031 [id number] / / 05PV Cage Cerv Anatomic Ptc [id number] - [id number] Implanted:Qty : 1 on 06/05/2023 by Vimal Pardo MD at [facility] Implant N/A: Spine Cervical [employer] 12/01/2028 [id number] / / 54LV Plt Acp [place] Vsn Elt 2lvl 40mm Ns - [id number] Implanted:Qty : 1 on 06/05/2023 by Vimal Pardo MD at [facility] Implant N/A: Spine Cervical [employer] [id number] / / Scrw [place] Vsn Elite Va Sd 4x16 Grn - [id number] Implanted:Qty : 5 on 06/05/2023 by Vimal Pardo MD at [facility] Implant N/A: Spine Cervical [employer] [id number] / / Scrw [place] Vsn Elite Va Sd 4.5x17 - [id number] Implanted:Qty : 1 on 06/05/2023 by Vimal Pardo MD at [facility] Implant N/A: Spine Cervical [employer] [id number] / / Explanted Type Area Train Attendant Device Identifier Shelf Expiration Date Model / Serial / Lot Scrw [place] Vsn Elite Va Sd 4x16 Grn - [id number] Explanted:Qty : 1 on 06/05/2023 at [facility] Implant N/A: Spine Cervical [employer] [id number] / / Insurance MEDICARE ADVANTAGE PPO Advance Directives * CPR (Attempt to Resuscitate) (Latest Code Status on File) Date Activated Date Inactivated Comments 06/05/2023 5:32 PM 06/06/2023 4:13 PM Question Answer Comments Code Status (Patient has no pulse and is not breathing): CPR (Attempt to Resuscitate) Medical Interventions (Patie nt has pulse or is breathing): Full Support Care Teams President & Ceo [employer] Relationship Specialty Start Date End Date Luz Marina Finn APRN [address] [place] [address] PCP - General Nurse Practitioner 04/29/23
--- OUTSIDE RECORDS SUMMARY | 2024-10-21 06:12 | XMS_ITS | Encounter Summary ---
Author Organization Healthcare Address [address] [place] [address] Care Team Providers Care Director Of Elementary Education Name Role Phone Duran Jiménez MD Primary Care Provider Encounter Details Date Type Department Care Team (Late st Contact Info) Description 04/24/2023 Community [facility] Community Practice [address] [place] [address] Alvarez Munoz MD [address] [place] [address] Social History Tobacco Use Types [...] Consult Medical Office Building Urology [address] [facility], [address] [place] [address] Oni Burton MD [address] [facility] [address] [place] [address] documented as of this encounter Visit Diagnoses Not on filedocumented in this encounter Care Teams Director Of Elementary Education Relationship Specialty Start Date End Date Duran Jiménez MD [address] [place] [address] PCP - General 06/24/20 documented as of this encounter
--- OUTSIDE RECORDS SUMMARY | 2024-10-21 06:12 | XMS_ITS | Encounter Summary ---
Author Organization Healthcare Address [address] [place] [address] Care Team Providers Care Roof Promenade Tile Setter Name Role Phone Duran Jiménez MD Primary Care Provider [phone] Encounter Details Date Type Department Care Team (Late Contact Info) Description 08/27/2024 Orders Only External Location [address] [place] [address] Provider, External Social History Tobacco Use Types [...] Consult Medical Office Building Urology [address] [facility], [address] [place] [address] Oni Burton MD [address] [facility] [address] [place] [address] documented as of this encounter [...] on filedocumented in this encounter Care Teams Roof Promenade Tile Setter Relationship Specialty Start Date End Date Duran Jiménez MD [address] [place] [address] PCP - General 06/24/20 documented as of this encounter
--- OUTSIDE RECORDS SUMMARY | 2024-10-21 06:12 | XMS_ITS | Clinical Summary ---
Author Organization Healthcare Address [address] [place] [address] Care Team Providers Care Supervisor Home Economics Name Role Phone Duran Jiménez MD Primary Care Provider Encounters Date Type Department Care Team Description 09/11/2024 Telephone [place] [facility] Urology [address], [address] [place] [address] Myra Rojas 08/27/2024 Orders Only External Location [address] [place] [address] Provider, External 08/27/2024 Orders Only External Location [address] [place] [address] Provider, External from Last 3 [...] Consult Medical Office Building Urology [address] [facility], [address] [place] [address] Oni Burton MD [address] [place] [address] Health Maintenance Due Date Last Done Comments [facility]-Depression Screening 1957 [facility]-Hepatitis C Screening 1957 [facility]-Medicare Annual Wellness (AWV) 1955 [facility]-/Child/Adol SDOH Screenings 1957 [facility]- SDOH Screenings 11/04/1975 [facility]-Adult SDOH Screenings 11/04/1975 [facility]-DTaP,Tdap,and Td Vaccine s (1 - Tdap) 1976 CT Colonography 2002 Colonoscopy 2002 FIT-DNA 2002 FIT 2002 FOBT 2002 Sigmoidoscopy 2002 [facility]-Colorectal Cancer Screening 2002 [facility]-Pneumococcal Vaccine: 50 + Years (1 of 1 - PCV) 11/04/2007 [facility]-Zoster Vaccines (1 of 2) 11/04/2007 [facility]-[id number]-74 Vaccine (1 - 20 24-25 season) 2024 [facility]-Influenza Vaccine (#1) 2024 [facility]-RSV Vaccine: 60+ [...] 3 Months Insurance [employer] MEDICARE Care Teams Supervisor Home Economics Relationship Specialty Start Date End Date Duran Jiménez MD [address] [place] [address] PCP - General 06/24/20
--- OUTSIDE RECORDS SUMMARY | 2024-10-21 06:12 | XMS_ITS | Encounter Summary ---
Author Organization [facility] Address [address] [place] [address] Care Team Providers Care Director Dermatology Name Role Phone Duran Jiménez MD Primary Care Provider [phone] Encounter Details Date Type Department Care Team ([facility] Contact Info) Description 09/11/2024 Telephone [place] [facility] [address], [address] [place] [address] [place] [address] Social History Tobacco Use Types Packs/Day Years [...] Consult Medical Office Building Urology [address] [facility], [address] [place] [address] Oni Burton MD [address] [facility] [address] [place] [address] documented as of this encounter Visit Diagnoses Not on filedocumented in this encounter Care Teams Director Dermatology Relationship Specialty Start Date End Date Duran Jiménez MD [address] [place] [address] [place] [address] PCP - General 06/24/20 documented as of this encounter
--- NOTE | 2024-10-21 06:30 | NM_ITS ---
APPROVED REPORT Exam: Nuclear Stress Test Indication: cp..soa..fatigue Patient Location: Outpatient Stress Tech: Argenis Lockhart [place] Tech:Raina BurgerJENN RT(R)(N) Ht: 5 ft 10 in Wt: 212 lbs HR: 62 bpm BP: 125/87 mmHg BSA: 2.14 m2 TID: 0.93 BMI: 30.4 History: cp..soa..fatigue Procedure: Patient exercised on Rhett protocol 8:43 minutes and sec, resting heart rate 62 bpm, resting blood pressure 125/87 mmHg, with exercise maximum heart rate achived was 143 bpm which is 92 % of the maximum predicted heart rate and blood pressure was 160/90 mmHg. Patient denied any complaint of chest pain. Patient has average exercise capacity, achieved 10.3 METs of workload on treadmill, the blood pressure response to exercise was normal. Cardiac Stress and Resting SPECT Images: Cardiac Stress and Resting SPECT images were obtained using technetium 99m Myoview 32.8 mCi stress and 10.84 mCi at rest. Resting and stress imaging in supine and prone positions demonstrate no evidence of fixed or reversible perfusion defects. Gated imaging demonstrates mild reduction global LV systolic function. LVEF is calculated at 49%. Conclusion: No evidence of fixed or reversible perfusion defects. Gated imaging demonstrates mild reduction global LV systolic function. LVEF is calculated at 49%. Correlation with new or recent TTE is suggested to evaluate LV systolic function. Electronically signed by : Sylwia Spaulding MD 10/21/2024 11:39:58
[2024-10-21 08:00] VITALS: BP 125/87; BP 174/82; PULSE 62; RESP 16
[2024-10-21] MEDS: ISOTOPE MYOVIEW (PER STUDY) 1 DOSE IV (09:15)
[2024-10-21] MEDS: SODIUM CHLORIDE 0.9% 10ML SYR (RAD ONLY) 10 ML IV ×2 (09:15→09:16)
== END 2024-10-21 23:59 | disposition home or self-care (01) ==
LOC: RAD 06:10
PROVIDERS: PCP Nurse Practitioner; Visit Provider Physician Assistant
DX: I11.9 Hypertensive heart disease without heart failure (principal); I49.1 Atrial premature depolarization; I49.3 Ventricular premature depolarization
CPT/HCPCS: 78452; 93017; 93018; A9502

== ENCOUNTER 2024-11-27 09:56 | Outpatient (CLI) | payer MEDICARE, SELFPAY ==
--- OUTSIDE RECORDS SUMMARY | 2024-11-03 13:00 | XMS_ITS | Encounter Summary ---
Author Organization Healthcare Address [address] [place] [address] Care Team Providers Care Double Bottom Driver Name Role Phone Duran Jiménez MD Primary Care Provider Encounter Details Date Type Department Care Team ([facility] st Contact Info) Description 2024 1:00 PM EDT Consult Medical Office Building Urology [address], [address] [place] [address] Oni Burton MD [address] [facility] [address] [place] [address] Erectile dysfunction (Primary Dx); Kidney stones Social History Tobacco Use Types Packs/Day Years Used Date Smoking Tobacco: Former Cigarettes Smokeless Tobacco: Never Tobacco Cessation:Counseling Given: Not Answered PHQ-2 Answer Date Recorded Patient Health Questionnaire-2 Score 0 2024 PHQ-9 Answer Date Recorded Patient Health Questionnaire-9 Score 0 2024 Sex and Gender Information Value Date Recorded Sex Assigned at Not on file Legal Sex Male 7:50 PM EDT Gender Identity Not on file Sexual Orientation Not on file documented as of this encounter Last Filed Vital Signs Vital Sign Reading Time Taken Comments Blood Pressure 129/85 2024 1:14 PM EDT Pulse 94 2024 1:14 PM EDT Temperature 36.7 C (98.1 F) 2024 1:14 PM EDT Respiratory Rate - - Oxygen Saturation 98% 2024 1:14 PM EDT Inhaled Oxygen Concentration - - Weight 97.5 kg (215 lb) 2024 1:14 PM EDT Height 177.8 cm (5' 10 ) 2024 1:14 PM EDT Body Mass Index 30.85 2024 1:14 PM EDT documented in this encounter Functional Status * Over the past 2 weeks, how often have you been bothered by any of the following problems? Question Answer Date of Assessment Author Little interest or pleasure in doing things Not at all 2024 1:19 PM Kale Gallardo Feeling down, depressed, or hopeless Not at all 2024 1:19 PM Kale Gallardo Patient Health Questionnaire -2 Score 0 2024 1:19 PM Kale Gallardo * Question Answer Date of Assessment Author Trouble falling or staying a sleep, or sleeping too much Not at all 2024 1:19 PM Kale Gallardo Feeling tired or having matt le energy Not at all 2024 1:19 PM Kale Gallardo Poor appetite or overeating Not at all 2024 1: 19 PM Kale Gallardo Feeling bad about yourself - or that you are a failure or have let yourself or your family down Not at all 2024 1:19 PM Marta Gallardo Trouble concentrating on thi ngs, such as reading the newspaper or watching television Not at all 2024 1:19 PM Kale Gallardo Moving or speaking so slowly that other people could have noticed? Or the opposite - being so fidgety or restless that you have been moving around a lot more than usual. Not at all 2024 1:19 PM Kale Gallardo Thoughts that you would be b arcenio off or hurting yourself in some way Not at all 2024 1:19 PM Kale Gallardo Patient Health Questionnaire -9 Score 0 2024 1:19 PM Kale Gallardo * How difficult have these problems made it for you to do your work, take care of things at home, or get along with other people? Answer Date of Assessment Author Not difficult at all 2024 1:19 PM Kale Hernández documented as of this encounter Miscellaneous Notes * Progress Notes - Jarvis Tamayo MD - 2024 1:00 PM EDT Images from the original note were not included. Chief complaint: CHIEF COMPLAINT: Left renal branched Calculus, Microhematuria, BPH Urologic history: Previously managed by Dr. Valencia: On flomax for LUTS. ED refractory to Cialis 5mg daily, discussed ICI/Prosthesis. Left orchalgia, discussed getting a scrotal ultrasound. 08/17/2024: - UA demonstrated small blood - PVR 23 ml CTU 08/27/2024: - Branch calculus in the left lower pole measuring 2.25 cm in largest dimension - Prostate 4.37 x 4.87 x 6.84 cm = 75 grams - Poor opacification of the left distal ureter, unclear if this represents a true filling defect History History of present illness: Saurabh Guzman is a 69 y.o. who presents to establish urologic care. The patient previously followed with Dr. Valencia. Stones: In August of 2024, the patient was noted to have microhematuria during his routine visit to Urology. He underwent a gross hematuria workup with a CT urogram which demonstrated a 2.25 cm branched calculus in the left lower pole. The patient states that he has had intermittent severe pain in his left upper back that are associated with nausea. These pains seem to last a few days and then resolve on their own. The patient has a attempted to strain his urine to catch a possible kidney stone, but has not passed a stone to his knowledge. He is not on blood thinners. LUTS: The patient has a long standing history of LUTS in his currently managed with Flomax 0.4 mg daily. The patient's most bothersome symptom is urinary frequency and urgency. The patient states that his urgency is not especially bothersome because he often works outside end can void whenever he gets the sensation to urinate. However, when the patient is not outdoors he urinates nearly every hour and has occasional episodes of urge incontinence. Additionally, the patient endorses a sensation of incomplete emptying and often double voids with very small volumes of urine on his 2nd void. The patient denies hesitancy, intermittency, nocturia, gross hematuria, or dysuria. CTU obtained as part of his gross hematuria workup demonstrates a enlarged 75 g prostate. PVR today in clinic was 76 mL. The patient states that he drinks primarily water throughout the day. He endorses having regular marrow movements secondary to Creon use and fiber supplementation. He has had no prior procedures on his prostate. ED: The patient has experienced erectile dysfunction for a number of years. He often has a hard time obtaining an erection hard enough for penetration. Additionally, he is unable to maintain his erection for a sufficient period of time. The patient is currently taking tadalafil 5 mg daily which he says improves his symptoms slightly, but not enough to engage in sexual activity how he desires. Thepatient has previously tried sildenafil 100 mg prn and states that he had significant headaches associated with the medication. He is interested in other medication options to improve his erectile function. PSA: It is unclear if the patient is getting routine PSA screening for prostate cancer. The patientis unsure when his last PSA was drawn. Review of systems: Constitutional: Negative for chills, fatigue and fever. HENT: Negative for congestion, ear discharge, sore throat, trouble swallowing and voice change. Respiratory: Negative for shortness of breath. Cardiovascular: Negative for leg swelling and chest pain. Gastrointestinal: Negative for abdominal pain, nausea and vomiting. Hematological: Negative for easy bleeding/bruising : See HPI Medical History: PMH: has no past medical history on file. PSH: has no past surgical history on file. FH: family history is not on file. SH: Current Medications[1] Physical Exam Physical Exam Constitutional: General: Not in acute distress. HENT: Head: Normocephalic. Eyes: Sclera-non icteric Cardiovascular: Palpable pulse Pulmonary: Effort: No respiratory distress. Abdominal: General: Abdomen is soft and nondistended Tenderness: There is no abdominal tenderness. There is no right CVA tenderness or left CVA tenderness. Genitourinary: Penis: Normal-appearing circumcised phallus Testes: Present bilaterally, normal texture and size without palpable masses or lesions Epididymis: Present bilaterally with normal texture and size Prostate: Enlarged prostate with smooth rubbery texture, symmetrical, no abnormal masses or nodules Musculoskeletal: General: Normal range of motion. Skin: General: Skin is warm and dry. Neurologic: Mental Status: Alert and oriented to person, place, and time. Lab & Imaging Laboratory results review: 08/17/2024 Lab Results Component Value Date PH >=8.5 (H) 2024 SPECGRAV 1.015 2024 KETONESU Negative 2024 GLUCOSEUA Negative 2024 POCPROTUR Negative 2024 RBCUR Negative 2024 NITRITE Negative 2024 WBCUR Negative 2024 Radiograph review: Images independently reviewed CTU 08/27/2024: - Branched calculus in the left lower pole measuring 2.25 cm in largest dimension - Prostate 4.37 x 4.87 x 6.84 cm = 75 grams - Poor opacification of the left distal ureter, unclear if this represents a true filling defect Assessment and Plan DISCUSSION: Saurabh Guzman is a 69 y.o. who presents to establish urologic care. Stones: The patient has a 2.25 cm left lower pole renal stone. The patient appears to be moderatelysymptomatic from the stone and would like to pursue surgical management of the condition. We discussed ureteroscopy with laser lithotripsy versus percutaneous nephrolithotomy for management of his stone burden. We discussed that PCNL would give the patient the best chance at getting stone free in asingle procedure. Additionally, the patient's stone location, renal anatomy, and body habitus are favorable for a percutaneous procedure. We discussed the risks of the procedure including bleeding including pseudoaneurysm formation, infection, damage to surrounding structures including pneumothorax, need for repeat procedures, need to abort PCNL procedure due to signs of infection or inability toobtain percutaneous access. The patient understood these risks and wishes to proceed with surgery. We obtained a urine culture today for preoperative planning. LUTS: The patient has moderately bothersome LUTS with urgency and frequency. He is currently managed on Flomax 0.4 mg. We discussed that there are multiple options for management of his LUTS. CT scansuggests that the patient has an enlarged prostate that could be causing bladder outlet obstruction. We will need to obtain further anatomic evaluation with cystoscopy to evaluate his candidacy for various outlet procedures. We will do a thorough cystoscopy during his PCNL and discuss options for management following that procedure. It is possible that the patient does not need operative intervention for this condition and may be managed with an antispasmodic such as a beta 3 agonist or anticholinergic to improve his urgency and frequency. We additionally discussed behavioral interventions primarily focused on bladder training to improve his bladder capacity. The patient should attempt to hold his urine for 1.5 hours at the time and allow the sensation of urgency to pass. Erectile dysfunction: The patient is still suffering from bothersome erectile dysfunction despite tadalafil 5 mg daily. We discussed multiple options for management including further medical treatment, vacuum erection devices and constriction bands, urethral gels, intracavernosal injections, and penile prostheses. The patient is interested in maximizing his medical therapy. He has previously struggled with Viagra, so we will supplement his daily tadalafil with a p.r.n. dose surrounding sexual activity. We counseled the patient that this medicine should be taken on an empty stomach in 1-2 hours prior to planned intercourse. The patient should not take the medication if he were to start a nitrate as this can lead to an unsafe drop in blood pressure. PSA: We will obtain a PSA as part of the patient's postoperative workup for prostate cancer screening. Assessment: Saurabh Guzman is a 69 y.o. male with a left lower pole renal stone, BPH w/ LUTS, and erectile dysfunction. Plan: - To OR for Left PCNL, plan to obtain a cystoscopic anatomic evaluation of the prostate during thisprocedure - Urine Culture today - Will determine the best course of management for GLASER following PCNL - Behavioral invention to improve bladder capacity - hold urine for at least 1.5 hours - Start tadalafil 20mg prn in addition to tadalafil 5mg daily - PSA screening to be obtained as part of postoperative workup Time Spent: 87 Minutes [1] No current outpatient medications on file. No current facility-administered medications for this visit. Cosigned by Oni Burton MD at 2024 8:52 PM EDT Associated attestation - Oni Burton MD - 2024 8:52 PM EDT I saw and evaluated the patient with the resident/fellow. I discussed the case with the resident/fellow and agree with the findings and plan as documented. documented in this encounter Plan of Treatment Upcoming Encounters Date Type Department Care Team (Latest Contact Info) Description 12/11/2024 11:10 AM EDT Hospital Encounter [facility] [address] [place] [address] Oni Burton MD [address] [address] 12/11/2024 11:10 AM EDT - 12/11/2024 3:25 PM EDT Surgery [facility] [address] [place] [address] Oni Burton MD [address] [address] NEPHROSTOLITHOTOMY, PERCUTANEOUS [59220 (CPT )] Scheduled Procedures Name Priority Associated Diagnoses Date/Ti me NEPHROSTOLITHOTOMY, PERCUTANEOUS Kidney stones 12/11/2024 11:10 AM EDT documented as of this encounter Procedures Procedure Name Priority Date/Time Associated Diagnosis Comments URINE CULTURE Routine 2024 2:32 PM EDT Kidney stones POC US BLADDER SCAN FOR VOLUME Routine 2024 2:13 PM EDT Erectile dysfunction POCT URINALYSIS DIPSTICK Routine 2024 1:14 PM EDT documented in this encounter Results * Urine Culture - Clinic Collect (2024 2:32 PM EDT) Culture <10,000 CFU/mL Mixed urogenital, fecal, or skin dimple present. 11/05/2024 8:15 AM EDT [facility] Urine Urine specimen obtained by clean catch procedure / Unknown Non-blood Collection / Unknown 2024 2:32 PM EDT 2024 4:36 PM EDT us Oni Burton MD LAB MICROBIOLOGY - GENERAL RICHFIELDJhoana MARTINEZ Final Result [facility] [address] [place] [address] * POC US Bladder Volume (2024 2:13 PM EDT) Urine, Volume 76 mL IMAGING Anatomical Region Laterality Modality Other us Oni Burton MD IMG POINT OF CARE ULTRASOUND Fi nal Result * (ABNORMAL) POCT URINALYSIS DIPSTICK (2024 1:14 PM EDT) POCT Urine Color Yellow 2024 1:15 PM EDT [facility] POCT Urine Clarity Clear 2024 1:15 PM EDT [facility] POCT Urine Glucose Negative Negative mg/dL 2024 1:15 PM EDT [facility] POCT Urine Bilirubin Negative Negative mg/dL 2024 1:15 PM EDT [facility] POCT Urine Ketones Negative Negative mg/dL 2024 1:15 PM EDT [facility] POCT Urine Specific Shields 1.015 1.005 - 1.030 2024 1:15 PM EDT [facility] POCT Urine Blood Negative Negative 2024 1:15 PM EDT [facility] POCT pH, Urine >=8.5(H) 5.0 - 8.0 2024 1:15 PM EDT [facility] POCT Protein, Urine Negative Negative mg/dL 2024 1:15 PM EDT [facility] POCT Urobilinogen, Urine 0.2 0.2, 1.0 EU/dL 2024 1:15 PM EDT [facility] POCT Nitrite, Urine Negative Negative 2024 1:15 PM EDT [facility] POCT Urine Leukocyte Esterase Negative Negative 2024 1:15 PM EDT [facility] Urine 2024 1:14 PM EDT 2024 1:15 PM EDT us Oni Burton MD LAB POINT OF CARE TE ST DOCKED DEVICE UNSOLICITED RESULTS Final Result [facility] [address] [place], [place] documented in this encounter Visit Diagnoses Diagnosis Erectile dysfunction- Primary Impotence of organic origin Kidney stones Calculus of kidney Kidney stones- Primary Calculus of kidney Kidney stones Calculus of kidney documented in this encounter Additional Health Concerns Assessment Noted Time PHQ-9 Depression Total Score: 0 11/04/19 25 1:19 PM EDT A fall risk assessment has been complete d for the patient 2024 1:19 PM EDT A Body Mass Index follow-up plan has been documented for the patient 2024 8:52 PM EDT documented as of this encounter Care Teams Double Bottom Driver Relationship Specialty Start Date End Date Duran Jiménez MD [address] [place] [address] PCP - General 06/24/20 documented as of this encounter
[2024-11-27 10:02] LABS: Microscopic, Urine URINE MICROSCOPIC (MICROSCOPIC)
--- OUTSIDE RECORDS SUMMARY | 2024-11-27 10:11 | XMS_ITS | Encounter Summary ---
Author Organization [facility] Address [address] [place] [address] Care Team Providers Care Alligator Shear Operator Name Role Phone Duran Jiménez MD Primary Care Provider Encounter Details Date Type Department Care Team (Late st Contact Info) Description 08/27/2024 Orders Only External Location [address] [place] [address] Provider, External Social History Tobacco Use Types [...] Hospital Encounter [facility] [address] [place] [phone] Oni Burton MD [address] [phone] 12/11/2024 11:10 AM EDT - 12/11/2024 3:25 PM EDT Surgery [facility] [address] [place] [phone] Oni Burton MD [address] [address] NEPHROSTOLITHOTOMY, PERCUTANEOUS [78911 (CPT )] Scheduled Procedures Name Priority Associated [...] on filedocumented in this encounter Care Teams Alligator Shear Operator Relationship Specialty Start Date End Date Duran Jiménez MD [address] [facility] [place] [address] PCP - General 06/24/20 documented as of this encounter
--- OUTSIDE RECORDS SUMMARY | 2024-11-27 10:11 | XMS_ITS | Encounter Summary ---
Author Organization [facility] Address [address] [place] [address] Care Team Providers Care Senior Systems Administrator Name Role Phone Duran Jiménez MD Primary Care Provider Encounter Details Date Type Department Care Team (Late st Contact Info) Description 08/27/2024 Orders Only External Location [address] [place] [address] Provider, External Social History Tobacco Use Types [...] Hospital Encounter [facility] [address] [place] [phone] Oni Burton MD [address] [phone] 12/11/2024 11:10 AM EDT - 12/11/2024 3:25 PM EDT Surgery [facility] [address] [place] [phone] Oni Burotn MD [address] [address] NEPHROSTOLITHOTOMY, PERCUTANEOUS [01437 (CPT )] Scheduled Procedures Name Priority Associated [...] on filedocumented in this encounter Care Teams Senior Systems Administrator Relationship Specialty Start Date End Date Duran Jiménez MD [address] [place] [address] PCP - General 06/24/20 documented as of this encounter
--- OUTSIDE RECORDS SUMMARY | 2024-11-27 10:11 | XMS_ITS | Clinical Summary ---
Author Organization [facility] Address [address] [place] [address] Care Team Providers Care Security Door Installer Name Role Phone Luz Marina Finn APRN Primary Care Provider [phone] Allergies Active Allergy Reactions Criticality Noted Date Comments Codeine Other (See Comments) Low 04/30/2023 Makes me restless Medications Creon [id number] units capsule delayed-release particles capsule Take 2 [...] MG/0.1ML nasal spray Call 911. Don't prime. Russell in 1 nostril for overdose. Repeat in [...] or training? Not on file Preferred Language [place] 05/29/2023 Sex and Gender Information Value Date [...] Health Maintenance Due Date Last Done Comments COVID-19 Vaccine (#1) 1962 TDAP/TD VACCINES (1 - Tdap) 1976 COLOGUARD 2002 COLON CANCER SCREENING 5 YEAR SIGMOIDOSCOPY 2002 COLONOSCOPY 2002 COLORECTAL CANCER SCREENING 2002 CT COLONOGRAPHY 2002 FECAL OCCULT BLOOD TEST 2002 FIT Testing (1 year) 2002 Pneumococcal Vaccine 50+ (1 of 1 - PCV) 11/04/2007 ZOSTER VACCINE (1 of 2) 11/04/2007 ANNUAL WELLNESS VISIT 04/30/2023 HEPATITIS C SCREENING 04/30/2023 INFLUENZA VACCINE 09/11/2024 AAA SCREEN ONCE Completed 10/09/2016 Medical Devices Implanted Type Area Golf Club Assembler Device Identifier Shelf Expiration Date Model / Serial / Lot Kt Seal Hemos Abs Floseal Matrx Fast/Prep 10ml - [id number] Implanted:Qty : 2 on 06/05/2023 by Vimal Pardo MD at [facility] Implant N/A: Spine Cervical [employer] [id number] / / Putty Dbm Phil 6cc - [id number] - [id number] Implanted:Qty : 1 on 06/05/2023 by Vimal Pardo MD at [facility] Implant N/A: Spine Cervical [employer] 04/25/2025 [id number] / [id number] / Cage Cerv Anatomic Ptc [id number] - [id number] Implanted:Qty : 1 on 06/05/2023 by Vimal Pardo MD at [facility] Implant N/A: Spine Cervical [employer] 01/22/2031 [id number] / / [id number] Cage Cerv Anatomic Ptc [id number] - [id number] Implanted:Qty : 1 on 06/05/2023 by Vimal Pardo MD at [facility] Implant N/A: Spine Cervical [employer] 12/01/2028 [id number] / / 54LV Plt Acp [place] Vsn Elt 2lvl 40mm Ns - [id number] Implanted:Qty : 1 on 06/05/2023 by Vimal Pardo MD at [facility] Implant N/A: Spine Cervical [employer] [id number] / / Scrw [place] Vsn Elite Va Sd 4x16 Grn - [id number] Implanted:Qty : 5 on 06/05/2023 by Vimal Pardo MD at [facility] Implant N/A: Spine Cervical [employer] [id number] / / Scrw [place] Vsn Elite Va Sd 4.5x17 - [id number] Implanted:Qty : 1 on 06/05/2023 by Vimal Pardo MD at [facility] Implant N/A: Spine Cervical [employer] [id number] / / Explanted Type Area Golf Club Assembler Device Identifier Shelf Expiration Date Model / Serial / Lot Scrw [place] Vsn Elite Va Sd 4x16 Grn - [id number] Explanted:Qty : 1 on 06/05/2023 at [facility] Implant N/A: Spine Cervical [employer] [id number] / / Insurance MEDICARE ADVANTAGE PPO Advance Directives * CPR (Attempt to Resuscitate) (Latest Code Status on File) Date Activated Date Inactivated Comments 06/05/2023 5:32 PM 06/06/2023 4:13 PM Question Answer Comments Code Status (Patient has no pulse and is not breathing): CPR (Attempt to Resuscitate) Medical Interventions (Patie nt has pulse or is breathing): Full Support Care Teams Security Door Installer Relationship Specialty Start Date End Date Luz Marina Finn APRN [address] [place] [phone] PCP - General Nurse Practitioner 04/29/23
--- OUTSIDE RECORDS SUMMARY | 2024-11-27 10:12 | XMS_ITS | Encounter Summary ---
Author Organization [facility] Address [address] [place] [address] Care Team Providers Care Linoleum Floor Layer Name Role Phone Duran Jiménez MD Primary Care Provider [phone] Encounter Details Date Type Department Care Team (Late Contact Info) Description 11/05/2024 Telephone [place] [facility] [address], [address] [place] [address] Oni Burton MD [address] [address] Social History Tobacco Use Types Packs/Day Years Used Date Smoking Tobacco: Former Cigarettes Smokeless Tobacco: Never PHQ-2 Answer Date Recorded Patient Health Questionnaire-2 [...] Hospital Encounter [facility] [address] [place] [address] Oni Burton MD [address] [place] [address] 12/11/2024 11:10 AM EDT - 12/11/2024 3:25 PM EDT Surgery [facility] [address] [place] [address] Oni Burton MD [address] [place] [address] NEPHROSTOLITHOTOMY, PERCUTANEOUS [86391 (CPT )] Scheduled Orders Name Type Priority Associated Diagnoses Orde r Schedule Urine Culture Microbiology Routine Kidney stones Expected: 11/27/2024 (Approximate), Expires: 05/09/2026 Scheduled Procedures Name Priority Associated Diagnoses Date/Ti me NEPHROSTOLITHOTOMY, PERCUTANEOUS Kidney stones 12/11/2024 11:10 AM EDT documented as of this encounter Goals Goal Patient Goal Type Associated Problems Recent Progress Patient-Stated? Author Autogenerat ed Goal Care Plan Autogenerated Problem No Ansley Zuleta documented as of this encounter Visit Diagnoses Diagnosis Kidney stones- Primary Calculus of kidney Kidney stones- Primary Calculus of kidney Kidney stones Calculus of kidney documented in this encounter Additional Health Concerns Active Problems Noted Date Diagnosed Date Autogenerated Problem 11/05/2024 Assessment Noted Time PHQ-9 Depression Total Score: 0 11/04/19 1:19 PM EDT A fall risk assessment has been complete d for the patient 2024 1:19 PM EDT A Body Mass Index follow-up plan has been documented for the patient 2024 8:52 PM EDT documented as of this encounter Care Teams Linoleum Floor Layer Relationship Specialty Start Date End Date Duran Jiménez MD [address] [address] PCP - General 06/24/20 documented as of this encounter
--- OUTSIDE RECORDS SUMMARY | 2024-11-27 10:12 | XMS_ITS | Clinical Summary ---
Author Organization [facility] Address [address] [place] [address] Care Team Providers Care Jewelry Internship Name Role Phone Duran iJménez MD Primary Care Provider Allergies Active Allergy Reactions Criticality Noted Date Comments Codeine Other - please docum ent in the comment field,Unknown - Patient states they do not know rxn details Low 10/09/2016 Makes me restless Medications Creon 10302-431423 units capsule delayed-release particles capsule TAKE 2 CAPSULES BY MOUTH THREE TIMES DAILY ADMINISTER WITH MEALS AND/OR SNACKS. MAX DAILY DOSE 6 CAPSULES 5 Active tamsulosin (Flomax) 0.4 MG 24 hr capsule Take 1 capsule by mouth daily. 5 Active tadalafil (Cialis) 5 MG tabletIndicatio ns:Erectile dysfunction Take 1 tablet by mouth daily. 30 tablet 11 5 11/04/19 26 Active tadalafil (Adcirca) 20 MG tabletIndicatio ns:Erectile dysfunction Take 1 tablet by mouth daily as needed for erectile dysfunction. 12 tablet 3 5 Active tadalafil (Cialis) 5 MG tablet TAKE 1 TABLET BY MOUTH ONCE DAILY START CIALIS 1 WEEK AFTER STARTING FLOMAX 5 11/04/19 25 Discontin ued(Reord er) Active Problems Problem Noted Date Diagnosed Date Kidney stones 2024 Encounters Date Type Department Care Team Description 11/05/2024 Telephone [facility] Urology [address] [place] [address] Oni Burton MD 11/05/2024 Telephone [place] [facility] [address] [place] [phone] Oni Burton MD 2024 1:00 PM EDT Consult Medical Office Building Urology [facility], [address] [place] [address] Oni Burton MD Erectile dysfunction (Primary Dx); Kidney stones 2024 Travel 09/11/2024 Telephone [place] [facility] [address] [place] [address] Myra Rojas Christiano 08/27/2024 Orders Only External Location [address] [place] [phone] Provider, External 08/27/2024 Orders Only External Location [address] [place] [address] Provider, External from Last 3 Months Family History Medical History Relation Name Comments Heart attack Father Cancer Maternal Grandmother Cancer Mother Cancer Paternal Grandmother Breast cancer Sister Relation Name Status Comments Father Maternal Grandmother Mother Paternal Grandmother Sister Social History Tobacco Use Types Packs/Day Years [...] Mass Index 30.85 2024 1:14 PM EDT Plan of Treatment Upcoming Encounters Date Type Department Care Team (Latest Contact Info) Description 12/11/2024 11:10 AM EDT Hospital Encounter [facility] [address] [place] [address] Oni Burton MD [address] [phone] 12/11/2024 11:10 AM EDT - 12/11/2024 3:25 PM EDT Surgery [facility] [address] [place] [address] Oni Burton MD [address] [address] NEPHROSTOLITHOTOMY, PERCUTANEOUS [22040 (CPT )] Scheduled Procedures Name Priority Associated Diagnoses Date/Ti me NEPHROSTOLITHOTOMY, PERCUTANEOUS Kidney stones 12/11/2024 11:10 AM EDT Health Maintenance Due Date Last Done Comments [facility]-Hepatitis C Screening 1955 [facility]-Medicare Annual Wellness (AWV) 1955 [facility]-Infant/Child/Adol SDOH Screenings 1955 [facility]- SDOH Screenings 11/04/1975 [facility]-Adult SDOH Screenings 11/04/1975 [facility]-DTaP,Tdap,and Td Vaccine s (1 - Tdap) 1976 CT Colonography 2002 Colonoscopy 2002 FIT-DNA 2002 FIT 2002 FOBT 2002 Sigmoidoscopy 2002 [facility]-Colorectal Cancer Screening 2002 [facility]-Pneumococcal Vaccine: 50 + Years (1 of 1 - PCV) 11/04/2007 [facility]-Zoster Vaccines (1 of 2) 11/04/2007 [facility]-Abdominal Aortic Aneurys m (AAA) Screening 2022 [id number] Vaccine (1 - 2023- season) 2024 [facility]-Influenza Vaccine (#1) 2024 [facility]-Depression Screening 2025 025, 2024 [facility]-RSV Vaccine: 60+ Years o r (1 - 1-dose 75+ series) 2032 [facility]-Obesity Intervention Completed 2024 HPV Vaccines Aged Out No longer eligi [...] on patient's age to complete this topic Goals Goal Patient Goal Type Associated Problems Recent Progress Patient-Stated? Author Autogenerat ed Goal Care Plan Autogenerated Problem No Ansley Zuleta Procedures Procedure Name Priority Date/Time Associated Diagnosis Comments URINE CULTURE Routine 2024 2:32 PM EDT Kidney stones POC US BLADDER SCAN FOR VOLUME Routine 2024 2:13 PM EDT Erectile dysfunction POCT URINALYSIS DIPSTICK Routine 2024 1:14 PM EDT US OUTSIDE IMAGES 08/27/2024 9:[address] [facility] OUTSIDE IMAGES 08/27/2024 8:01 AM EDT from Last 3 Months Results * Urine Culture - Clinic Collect (2024 2:32 PM EDT) Culture <10,000 CFU/mL Mixed urogenital, fecal, or skin dimple present. 11/05/2024 8:15 AM EDT [facility] Urine Urine specimen obtained by clean catch procedure / Unknown Non-blood Collection / Unknown 2024 2:32 PM EDT 2024 4:36 PM EDT us Oni Burton MD LAB MICROBIOLOGY - GENERAL [place] MARTINEZ Final Result [facility] [address] [place] [address] * POC US Bladder Volume (2024 2:13 [...] EDT [facility] POCT Urine Specific [place] 1.015 1.005 - 1.030 2024 1:15 PM [...] UNSOLICITED RESULTS Final Result [facility] Misha Bhat [place], [place] * US OUTSIDE IMAGES (08/27/2024 9:12 AM EDT) Anatomical Region Laterality Modality Ultrasound 08/27/2024 9:12 AM EDT us External Provider IMG US PROCEDURES Final Result * CT [facility] OUTSIDE IMAGES (08/27/2024 8:01 AM EDT) Anatomical Region Laterality Modality Computed Tomogra phy 08/27/2024 8:01 AM EDT us External Provider IMG CT PROCEDURES Final Result from Last 3 Months Additional Health Concerns Active Problems Noted Date Diagnosed Date Autogenerated Problem 11/05/2024 Insurance MEDICARE Care Teams Jewelry Internship Relationship Specialty Start Date End Date Duran Jiménez MD [address] [place] [address] PCP - General 06/24/20
--- OUTSIDE RECORDS SUMMARY | 2024-11-27 10:12 | XMS_ITS | Encounter Summary ---
Author Organization [facility] Address [address] [place] [address] Care Team Providers Care Educational Programming Director Name Role Phone Duran Jiménez MD Primary Care Provider [phone] Encounter Details Date Type Department Care Team (Latest Contact Info) Description 2024 Travel Social History Tobacco Use Types Packs/Day Years [...] on file documented as of this encounter Functional Status * Over the [...] down Not at all 2024 1:19 PM EDT Marta Card Trouble concentrating on thi ngs, such as [...] Not difficult at all 2024 1:19 PM JAQUANT Kale Ang documented as of this encounter Plan of Treatment Upcoming Encounters Date Type Department Care Team (Latest Contact Info) Description 12/11/2024 11:10 AM EDT Hospital Encounter [facility] [address] [place] [phone] Oni Burton MD [address] [address] 12/11/2024 11:10 AM EDT - 12/11/2024 3:25 PM EDT Surgery [facility] [address] [place] [address] Oni Burton MD [address] [address] NEPHROSTOLITHOTOMY, PERCUTANEOUS [18739 (CPT )] Scheduled Procedures Name Priority Associated Diagnoses Date/Ti nc NEPHROSTOLITHOTOMY, PERCUTANEOUS Kidney stones 12/11/2024 11:10 AM EDT documented as of this encounter Visit Diagnoses Not on filedocumented in this encounter Additional Health Concerns Assessment Noted Time PHQ-9 Depression Total Score: 0 11/04/19 25 1:19 PM EDT A fall risk assessment has been complete d for the patient 2024 1:19 PM EDT A Body Mass Index follow-up plan has been documented for the patient 2024 8:52 PM EDT documented as of this encounter Care Teams Educational Programming Director Relationship Specialty Start Date End Date Duran Jiménez MD [address] [place] [address] PCP - General 06/24/20 documented as of this encounter
--- OUTSIDE RECORDS SUMMARY | 2024-11-27 10:12 | XMS_ITS | Encounter Summary ---
Author Organization [facility] Address [address] [place] [address] Care Team Providers Care Supervisor Assembly And Packing Name Role Phone Duran Jiménez MD Primary Care Provider [phone] Encounter Details Date Type Department Care Team (Late st Contact Info) Description 11/05/2024 Telephone [place] [facility] [address], [address] [place] [address] Oni Burton MD [address] [place] [address] Social History Tobacco Use Types Packs/Day [...] encounter Miscellaneous Notes * Telephone Encounter - Ansley Zuleta - 11/05/2024 2:56 PM EDT Spoke with patient, scheduled 12/11 surgery, verified information, patient is aware of anesthesia preop screening call and arrival time call prior to surgery documented in this encounter Plan of Treatment Upcoming Encounters Date Type Department Care Team (Latest Contact Info) Description 12/11/2024 11:10 AM EDT Hospital Encounter [facility] [address] [place] [address] Oni Burton MD [address] [facility] [place] [address] 12/11/2024 11:10 AM EDT - 12/11/2024 3:25 PM EDT Surgery [facility] [address] [place] [address] Oni Burton MD [address] [address] NEPHROSTOLITHOTOMY, PERCUTANEOUS [65154 (CPT )] Scheduled Procedures Name Priority Associated Diagnoses Date/Ti me NEPHROSTOLITHOTOMY, PERCUTANEOUS Kidney stones 12/11/2024 11:10 AM EDT documented as of this encounter Goals Goal Patient Goal Type Associated Problems Recent Progress Patient-Stated? Author Autogenerat ed Goal Care Plan Autogenerated Problem No Ansley Zuleta documented as of this encounter Visit Diagnoses Not on filedocumented in this encounter Additional Health Concerns Active [...] documented as of this encounter Care Teams Supervisor Assembly And Packing Relationship Specialty Start Date End Date Duran Jiménez MD [address] [place] [address] [place] [address] PCP - General 06/24/20 documented as of this encounter
--- OUTSIDE RECORDS SUMMARY | 2024-11-27 10:12 | XMS_ITS | Encounter Summary ---
Author Organization Healthcare Address [address] [place] [address] Care Team Providers Care Automat Car Attendant Name Role Phone Duran Jiménez MD Primary Care Provider [phone] Encounter Details Date Type Department Care Team (Late st Contact Info) Description 04/24/2023 Community [facility] [address] [place] [address] Alvarez Munoz MD [address] [place] [address] Social History Tobacco Use Types [...] Hospital Encounter [facility] [address] [place] [phone] Oni Burton MD [address] [phone] 12/11/2024 11:10 AM EDT - 12/11/2024 3:25 PM EDT Surgery [facility] [address] [place] [phone] Oni Burton MD [address] [phone] NEPHROSTOLITHOTOMY, PERCUTANEOUS [42088 (CPT )] Scheduled Procedures Name Priority Associated Diagnoses Date/Ti hi NEPHROSTOLITHOTOMY, PERCUTANEOUS Kidney stones 12/11/2024 11:10 AM EDT documented as of this encounter Visit Diagnoses Not on filedocumented in this encounter Care Teams Automat Car Attendant Relationship Specialty Start Date End Date Duran Jiménez MD [address] [facility] [place] [address] PCP - General 06/24/20 documented as of this encounter
[2024-11-27 10:57] LABS: Bilirubin,Urine Negative (Negative); Color,Urine YELLOW (Yellow); Glucose,Urine (UA) Negative (Negative); Ketones,Urine Negative (Negative); Leukocyte Esterase,Urine Negative (Negative); PH,Urine 7.5 (5.0-8.5); Protein,Urine Negative (Negative); Specific Gravity, Urine 1.020 (1.005-1.030); Urobilinogen,Urine 0.2 EU/dl (0.2)
[2024-11-27 11:04] LABS: RBC,Urine Occasional #/hpf (0-3)
== END 2024-11-27 23:59 | disposition home or self-care (01) ==
LOC: LAB 09:58
PROVIDERS: Urology; PCP Nurse Practitioner; Visit Provider Urology
DX: N50.819 Testicular pain, unspecified (principal); N40.1 Benign prostatic hyperplasia with lower urinary tract symptoms; N52.9 Male erectile dysfunction, unspecified; R31.9 Hematuria, unspecified
CPT/HCPCS: 81001; 87086